=== PATIENT | female | born 1995 | race Caucasian/White ===

== ENCOUNTER 2016-05-22 22:36 | Emergency (ER) | payer BC, OTHER ==
[2016-05-22] MEDS ORDERED: Sodium Chloride 0.9% 1000 ML 1,000 ML IV STA (23:03)
[2016-05-22] MEDS ORDERED: Zofran 4 MG/2 ML VIAL IV ONE (23:03)
[2016-05-22] MEDS ORDERED: PROTONIX 40 MG IV IV ONE ×2 (23:06→23:09)
[2016-05-22] MEDS ORDERED: Zofran 4 MG/2 ML VIAL ONE (23:08)
[2016-05-22] MEDS ORDERED: Sodium Chloride 0.9% 1000 ML 1,000 ML ONE (23:09)
--- NOTE | 2016-05-22 23:13 | ERPHSYRPT ---
- History of Present Illness Time Seen by Provider: 05/22/16 22:55 Historian: patient Exam Limitations: clinical condition Patient Subjective Stated Complaint: PT REPORTS VOMITING BEGINNING TODAY, APPROXIMATELY 10 EPISODES. PT STATES SHE CANNOT KEEP ANYTHING DOWN. PT REPORTS RIGHT SIDED ABDOMINAL THAT IS NON RADIATING. Triage Nursing Assessment: PT IS AOX3, SKIN IS PWD, PT IS AMBULATORY TO COT WITH NO DIFFICULTIES, RESPS ARE EASY AND NON LABORED. Physician History: PATIENT WITH LONGSTANDING HISTORY OF FREQUENT EPISODES OF EMESIS AND UPPER ABDOMINAL PAINS OVER THE PAST YEAR. EVALUATED IN PAST YEAR WITH NORMAL GALL BLADDER ULTRASOUND AND ABDOMINAL PELVIC CT SCAN. NOW COMPLAINS OF FREQUENT EPISODES OF EMESIS TO X 10 EPISODES. NO IMPROVEMENT AFTER CLEAR LIQUID DIET. Timing/Duration: today Activities at Onset: none Quality: other Abdominal Pain Onset Location: other (NONE) Pain Radiation: no radiation Severity of Pain-Max: none Severity of Pain-Current: none Modifying Factors: Improves With: vomiting (X 10 EPISODES) Associated Symptoms: vomiting Previous symptoms: same symptoms as today Allergies/Adverse Reactions: No Known Drug Allergies Allergy (Verified 05/22/16 22:50) Hx Tetanus, Diphtheria Vaccination/Date Given: (UNK) Hx Influenza Vaccination/Date Given: Yes Hx Pneumococcal Vaccination/Date Given: No Immunizations Up to Date: Yes - Review of Systems Constitutional: No Symptoms, No Fever, No Chills Eyes: No Symptoms Ears, Nose, & Throat: No Symptoms Respiratory: No Symptoms, No Cough, No Dyspnea Cardiac: No Symptoms, No Chest Pain, No Edema, No Syncope Abdominal/Gastrointestinal: Nausea, Vomiting, No Abdominal Pain, No Diarrhea Genitourinary Symptoms: No Symptoms, No Dysuria Musculoskeletal: No Symptoms, No Back Pain, No Neck Pain Skin: No Symptoms, No Rash Neurological: No Dizziness, No Focal Weakness, No Sensory Changes Psychological: No Symptoms Endocrine: No Symptoms All Other Systems: Reviewed and Negative - Past Medical History Pertinent Past Medical History: Yes Neurological History: No Pertinent History ENT History: No Pertinent History Cardiac History: No Pertinent History Respiratory History: No Pertinent History Endocrine Medical History: No Pertinent History Musculoskeletal History: No Pertinent History GI Medical History: No Pertinent History History: No Pertinent History Psycho-Social History: Depression Female Reproductive Disorders: No Pertinent History - Past Surgical History Past Surgical History: No Neuro Surgical History: No Pertinent History Cardiac: No Pertinent History Respiratory: No Pertinent History Gastrointestinal: No Pertinent History Genitourinary: No Pertinent History Musculoskeletal: No Pertinent History Female Surgical History: No Pertinent History - Social History Smoking Status: Never smoker Exposure to second hand smoke: No Drug Use: none Patient Lives Alone: No - Female History Hx Last Menstrual Period: 05/20/16 Hx Now: No - Nursing Vital Signs Nursing Vital Signs: Initial Vital Signs Temperature 97.9 F Temperature Source Oral Pulse Rate 81 Respiratory Rate 12 Blood Pressure [Right Arm] 91/50 Pain Intensity 0 - Physical Exam General Appearance: no apparent distress, alert Eye Exam: PERRL/EOMI, eyes nml inspection Ears, Nose, Throat Exam: normal ENT inspection, pharynx normal, moist mucous membranes Neck Exam: normal inspection, non-tender, supple, full range of motion Respiratory Exam: normal breath sounds, lungs clear, No respiratory distress Cardiovascular Exam: regular rate/rhythm, normal heart sounds Gastrointestinal/Abdomen Exam: soft, normal bowel sounds, No tenderness ( NONTENDER, ), No mass Back Exam: normal inspection, normal range of motion, No CVA tenderness, No vertebral tenderness Extremity Exam: normal inspection, normal range of motion, pelvis stable Neurologic Exam: alert, oriented x 3, cooperative, normal mood/affect, nml cerebellar function, sensation nml, No motor deficits Skin Exam: normal color, warm, dry SpO2 Interpretation: normal Ordered Tests: Active Orders 24 hr Category Date Time Status IV Insertion STAT Care 05/22/16 23:03 Active Orthostatic Vital Signs STAT Care 05/22/16 23:03 Active PO Fluid Challenge STAT Care 05/23/16 01:31 Active AMYLASE Stat Lab 05/22/16 23:00 Completed CBC W DIFF Stat Lab 05/22/16 23:00 Completed CMP Stat Lab 05/22/16 23:00 Completed HCG,QUALITATIVE URINE Stat Lab 05/23/16 00:05 Completed LIPASE Stat Lab 05/22/16 23:00 Completed Manual Differential NC Stat Lab 05/22/16 23:00 Completed UA Stat Lab 05/22/16 23:30 Completed Medication Summary Discontinued Medications Generic Name Dose Route Start Last Admin Trade Name Freq PRN Reason Stop Dose Admin Sodium Chloride 1,000 mls @ 999 mls/hr 05/22/16 23:03 05/22/16 23:18 Sodium Chloride 0.9% 1000 Ml IV 05/23/16 00:03 999 mls/hr .Q1H1M STA Administration Sodium Chloride Confirm 05/22/16 23:09 Sodium Chloride 0.9% 1000 Ml Administered 05/22/16 23:10 Dose 1,000 mls @ ud .ROUTE .STK-MED ONE Sodium Chloride 1,000 mls @ 999 mls/hr 05/23/16 00:11 05/23/16 00:18 Sodium Chloride 0.9% 1000 Ml IV 05/23/16 01:11 999 mls/hr .Q1H1M STA Administration Sodium Chloride Confirm 05/23/16 00:16 Sodium Chloride 0.9% 1000 Ml Administered 05/23/16 00:17 Dose 1,000 mls @ ud .ROUTE .STK-MED ONE Ondansetron HCl 4 mg 05/22/16 23:03 05/22/16 23:16 Zofran 4 Mg/2 Ml Vial IV 05/22/16 23:04 4 mg STAT ONE Administration Ondansetron HCl Confirm 05/22/16 23:08 Zofran 4 Mg/2 Ml Vial Administered 05/22/16 23:09 Dose 4 mg .ROUTE .STK-MED ONE Pantoprazole Sodium 40 mg 05/22/16 23:06 05/22/16 23:16 Protonix 40 Mg Iv IV 05/22/16 23:07 40 mg STAT ONE Administration Pantoprazole Sodium Confirm 05/22/16 23:09 Protonix 40 Mg Iv Administered 05/22/16 23:10 Dose 40 mg IV .STK-MED ONE Promethazine HCl 25 mg 05/23/16 00:11 05/23/16 00:18 Phenergan 25 Mg Inj IM 05/23/16 00:12 25 mg STAT ONE Administration Promethazine HCl Confirm 05/23/16 00:15 Phenergan 25 Mg Inj Administered 05/23/16 00:16 Dose 25 mg .ROUTE .STK-MED ONE Lab/Rad Data: Laboratory Result Diagrams 05/22/16 23:00 05/22/16 23:00 Laboratory Results 05/23/16 05/22/16 05/22/16 Range/Units 00:05 23:30 23:00 WBC (4.0-10.5) K/mm3 RBC (4.1-5.4) M/mm3 Hgb (12.0-16.0) gm/dl Hct (35-47) % MCV (78-100) fl MCH (26-32) pg MCHC (32-36) g/dl RDW (11.5-14.0) % Plt Count (150-450) K/mm3 MPV (6-9.5) fl Segmented Neutrophils (36.0-66.0) % Lymphocytes (Manual) (24-44) % Monocytes (Manual) (0.0-12.0) % Differential Comment Platelet Estimate (NORMAL) Sodium 140 (136-145) mEq/L Potassium 3.5 (3.5-5.1) mEq/L Chloride 104 (98-107) mEq/L Carbon Dioxide 26.0 (21-32) mEq/L Anion Gap 13.1 (5-15) MEQ/L BUN 13 (9-20) mg/dL Creatinine 0.85 (0.55-1.30) mg/dl Estimated GFR > 60 ML/MIN Glucose 81 (70-110) MG/DL Calcium 9.0 (8.5-10.1) mg/dL Total Bilirubin 0.6 (0.2-1.0) mg/dL AST 15 (15-37) U/L ALT 16 (12-78) U/L Alkaline Phosphatase 80 (46-116) U/L Serum Total Protein 7.7 (6.4-8.2) gm/dL Albumin 3.7 (3.4-5.0) g/dL Amylase 75 (25-115) U/L Lipase 182 (73-393) U/L Ur Collection Type CLEAN CATCH Urine Color YELLOW (YELLOW) Urine Appearance CLEAR (CLEAR) Urine pH 7.0 (5-6) Ur Specific [place] 1.020 (1.005-1.025) Urine Protein NEGATIVE (Negative) Urine Glucose (UA) NEGATIVE (NEGATIVE) mg/dL Urine Ketones TRACE (NEGATIVE) Urine Nitrite NEGATIVE (NEGATIVE) Urine Bilirubin NEGATIVE (NEGATIVE) Urine Urobilinogen 0.2 (0-1) mg/dL Urine WBC (Auto) NEGATIVE (NEGATIVE) Urine RBC (Auto) NEGATIVE (0-5) Yves/ul Urine HCG, Qual NEGATIVE (Negative) Specimen Received 05/22/16:2330 05/22/16 Range/Units 23:00 WBC 7.5 (4.0-10.5) K/mm3 RBC 4.37 (4.1-5.4) M/mm3 Hgb 13.1 (12.0-16.0) gm/dl Hct 38.4 (35-47) % MCV 87.9 (78-100) fl MCH 30.0 (26-32) pg MCHC 34.1 (32-36) g/dl RDW 12.2 (11.5-14.0) % Plt Count 234 (150-450) K/mm3 MPV 11.9 H (6-9.5) fl Segmented Neutrophils 38 (36.0-66.0) % Lymphocytes (Manual) 53 H (24-44) % Monocytes (Manual) 9 (0.0-12.0) % Differential Comment NORMAL Platelet Estimate NORMAL (NORMAL) Sodium (136-145) mEq/L Potassium (3.5-5.1) mEq/L Chloride (98-107) mEq/L Carbon Dioxide (21-32) mEq/L Anion Gap (5-15) MEQ/L BUN (9-20) mg/dL Creatinine (0.55-1.30) mg/dl Estimated GFR ML/MIN Glucose (70-110) MG/DL Calcium (8.5-10.1) mg/dL Total Bilirubin (0.2-1.0) mg/dL AST (15-37) U/L ALT (12-78) U/L Alkaline Phosphatase (46-116) U/L Serum Total Protein (6.4-8.2) gm/dL Albumin (3.4-5.0) g/dL Amylase (25-115) U/L Lipase (73-393) U/L Ur Collection Type Urine Color (YELLOW) Urine Appearance (CLEAR) Urine pH (5-6) Ur Specific [place] (1.005-1.025) Urine Protein (Negative) Urine Glucose (UA) (NEGATIVE) mg/dL Urine Ketones (NEGATIVE) Urine Nitrite (NEGATIVE) Urine Bilirubin (NEGATIVE) Urine Urobilinogen (0-1) mg/dL Urine WBC (Auto) (NEGATIVE) Urine RBC (Auto) (0-5) Yves/ul Urine HCG, Qual (Negative) Specimen Received - Progress Progress: improved Progress Note: 05/22/16 23:11 PATIENT GIVEN IV NORMAL SALINE 1 LITER/HOUR X 2, ZOFRAN 4MG, PROTONIX 40MG IV, PHENERGAN 25MG IM FOR PERSISTENT NAUSEA 05/23/16 01:35 Counseled pt/family regarding: lab results, diagnosis, need for follow-up, rad results - Departure Time of Disposition: 01:45 Departure Disposition: Home Clinical Impression: ACUTE EMESIS, DEHYDRATION Condition: Stable Critical Care Time: No Referrals: YULIET BINGHAM [Primary Care Provider] - Additional Instructions: CONTINUE CLEAR LIQUID DIET FOR 24 HOUR THEN ADVANCE DIET TO FULL LIQIUDS, SOUPS , CHEESES, AND CRACKERS, THEN REGULAR DIET. ZOFRAN 4MG EVERY 4 HOURS FOR NAUSEA NEEDED. PHENERGAN SUPPOSITORY 25MG PER RECTUM EVERY 4 HOURS FOR NAUSEA. CONSULT YOUR HEALTH CARE PROVIDER FOR REFERRAL TO DR BUSBY FOR UPPER ENDOSCOPY. PREVACID 30MG DAILY FOR 1 MONTH. Prescriptions: Ondansetron [Zofran Odt] 4 mg PO Q4HPRN PRN #8 tab.rapdis PRN Reason: Nausea Promethazine HCl 25 mg Supp [Phenergan 25 mg Supp] 25 mg RC Q4HPRN PRN # 10 supp.rect PRN Reason: Nausea Lansoprazole [Prevacid] 30 mg PO DAILY #30 capsule.
[2016-05-22 23:23] LABS: Mean Cell Volume 87.9 fl (78-100); Mean Platelet Volume 11.9 fl (6-9.5); Platelet Count 234 K/mm3 (150-450); Red Blood Count 4.37 M/mm3 (4.1-5.4); Red Cell Distribution Width 12.2 % (11.5-14.0); White Blood Count 7.5 K/mm3 (4.0-10.5)
[2016-05-22 23:43] LABS: ALBUMIN 3.7 g/dL (3.4-5.0); ALKALINE PHOSPHATASE 80 U/L (46-116); ANION GAP 13.1 MEQ/L (5-15); BILIRUBIN,TOTAL 0.6 mg/dL (0.2-1.0); BLOOD UREA NITROGEN 13 mg/dL (9-20); CHLORIDE 104 mEq/L (98-107); Glucose 81 MG/DL (70-110); LIPASE 182 U/L (73-393); Potassium 3.5 mEq/L (3.5-5.1); SGOT/AST 15 U/L (15-37); SGPT/ALT 16 U/L (12-78); SODIUM 140 mEq/L (136-145); Total Protein 7.7 gm/dL (6.4-8.2)
[2016-05-22 23:47] LABS: COMPLETE URINE MICROSCOPIC? NO; Collection Type CLEAN CATCH
[2016-05-23] MEDS ORDERED: Sodium Chloride 0.9% 1000 ML 1,000 ML IV STA (00:11)
[2016-05-23] MEDS ORDERED: Phenergan 25 MG INJ IM ONE (00:11)
[2016-05-23] MEDS ORDERED: Phenergan 25 MG INJ ONE (00:15)
[2016-05-23] MEDS ORDERED: Sodium Chloride 0.9% 1000 ML 1,000 ML ONE (00:16)
[2016-05-23 00:49] LABS: Platelet Estimate NORMAL (NORMAL); Total Cells Counted 100
[2016-05-23 01:26] VITALS: BP 91/50; PULSE 81; O2SAT 99
== END 2016-05-23 01:51 | disposition home or self-care (01) ==
LOC: ED 22:36
DX: R11.10 Vomiting, unspecified (principal); E86.0 Dehydration; R10.9 Unspecified abdominal pain
CPT/HCPCS: 36000; 36415; 80053; 81002; 82150; 83690; 84703; 85025; 96360; 96361; 96372; 96374; 96375; 99283; 99284; J2405; J2550

== ENCOUNTER 2017-01-08 13:49 | Emergency (ER) | payer OTHER ==
--- NOTE | 2017-01-08 14:34 | ERPHSYRPT ---
- History of Present Illness Time Seen by Provider: 01/08/17 13:56 Source: patient Exam Limitations: no limitations Patient Subjective Stated Complaint: PT REPORTS HAVING WISDOM TEETH TAKEN OUT A FEW WEEKS AGO-STATES SHE CAN'T OPEN HER MOUTH-REPORTS SEVERE PAIN TO LEFT SIDE WHEN SHE TRIES-DENIES FEVER-DENIES DIFFICUTLY WITH SWALLOWING-STATES THAT HER DENTIST HAS WANTED HER TO HAVE A CT SCAN FOR A FEW DAYS Triage Nursing Assessment: PT PINK WARM ET [id number] EASY ET NONLABORED-NO DROOLING OR COUGHING NOTED-NO DIFFICUTLY WITH SPEECH NOTED-STATES THAT IT ONLY HURTS WHEN SHE ATTEMPTS TO OPEN HER MOUTH Physician History: patient here for evaluation of inability to open mouth several days post op wisdom teeth extraction - all four; no pain at rest; no difficulty swallowing or breathing; no fever; some pain with mouth opening on left mid jaw and can only partially open;no other trauma; no history; no other complaints Timing/Duration: day(s) (4), gradual onset Severity: moderate Modifying Factors: Improves With: nothing Associated Symptoms: denies symptoms Allergies/Adverse Reactions: No Known Drug Allergies Allergy (Verified 01/08/17 13:56) Home Medications: Hydrocodone Bit/Acetaminophen [[place] 5/325Mg] 1 each PO UD 01/08/17 [History] Hx Tetanus, Diphtheria Vaccination/Date Given: No Hx Influenza Vaccination/Date Given: Yes (2016) Hx Pneumococcal Vaccination/Date Given: No Immunizations Up to Date: Yes - Review of Systems Constitutional: No Symptoms Eyes: No Symptoms Ears, Nose, & Throat: Mouth Pain (left lower jaw when tries to open), No Ear Pain, No Tinnitus, No Nose Pain, No Sinus Drainage, No Epistaxis, No Throat Pain , No Throat Swelling, No Hoarse, No Painful Swallowing, No Snoring, No Stridor Respiratory: No Cough, No Dyspnea, No Wheezing Cardiac: No Chest Pain, No Palpitations, No Syncope Abdominal/Gastrointestinal: No Abdominal Pain, No Nausea, No Vomiting, No Diarrhea Genitourinary Symptoms: No Symptoms Musculoskeletal: No Symptoms Skin: No Symptoms Neurological: No Symptoms Psychological: No Symptoms Endocrine: No Symptoms Hematologic/Lymphatic: No Symptoms Immunological/Allergic: No Symptoms - Past Medical History Pertinent Past Medical History: Yes Neurological History: No Pertinent History ENT History: No Pertinent History Cardiac History: No Pertinent History Respiratory History: No Pertinent History Endocrine Medical History: No Pertinent History Musculoskeletal History: No Pertinent History GI Medical History: No Pertinent History History: No Pertinent History Psycho-Social History: Depression Female Reproductive Disorders: No Pertinent History - Past Surgical History Past Surgical History: No Neuro Surgical History: No Pertinent History Cardiac: No Pertinent History Respiratory: No Pertinent History Gastrointestinal: No Pertinent History Genitourinary: No Pertinent History Musculoskeletal: No Pertinent History Female Surgical History: No Pertinent History - Social History Smoking Status: Never smoker Exposure to second hand smoke: No Alcohol Use: None Drug Use: none Patient Lives Alone: No Significant Family History: no pertinent family hx - Female History Hx Last Menstrual Period: 2 DAYS AGO Hx Now: No - Nursing Vital Signs Nursing Vital Signs: Initial Vital Signs Temperature 97.2 F 01/08/17 13:53 Pulse Rate 73 01/08/17 13:53 Respiratory Rate 20 01/08/17 13:53 Blood Pressure 124/56 01/08/17 13:53 O2 Sat by Pulse Oximetry 96 01/08/17 13:53 Pain Scale Pain Intensity 0 - Physical Exam General Appearance: mild distress, alert Eye Exam: PERRL/EOMI, eyes nml inspection Ears, Nose, Throat Exam: normal ENT inspection, TMs normal, pharynx normal, moist mucous membranes, other (trismus with pain onleft; also jaw shifts form left to right when attempts to open; normal voice) Neck Exam: normal inspection, non-tender, supple, full range of motion, No meningismus, No JVD, No lymphadenopathy Respiratory Exam: normal breath sounds, lungs clear, airway intact, No chest tenderness, No respiratory distress Cardiovascular Exam: regular rate/rhythm, normal heart sounds, normal peripheral pulses, capillary refill <2 sec, No murmur Gastrointestinal/Abdomen Exam: soft, normal bowel sounds, No guarding, No rebound, No organomegaly Pelvic Exam: deferred Rectal Exam: deferred Back Exam: normal inspection, normal range of motion, No CVA tenderness Extremity Exam: normal inspection, normal range of motion, No pedal edema Neurologic Exam: alert, oriented x 3, cooperative, housecleaner II-XII nml as tested, normal mood/affect, nml cerebellar function, nml station & gait Skin Exam: normal color, warm, dry, No rash Lymphatic Exam: No adenopathy SpO2 Interpretation: normal SpO2: 96 Oxygen Delivery: Room Air - Course Nursing assessment & vital signs reviewed: Yes - CT Exams Maxillofacial Bones CT Interpretation: Negative, DJD (mild left TMJ; some sinus fluid) Ordered Tests: Active Orders 24 hr Category Date Time Status Cold Application STAT Care 01/08/17 14:27 Active FACIAL BONES WO CONTRAST [CT] Stat Exams 01/08/17 15:11 Completed MANDIBLE (MINIMUM 4 VIEWS) Routine Exams 01/08/17 14:10 Completed - Progress Progress: re-examined (no change; no TMJ tenderness or swelling) Progress Note: 01/08/17 14:35 patient stated her DDS had requested her to get XR to evaluate her problem; discussed findings with Radiologist to determine best films to get; will recheck after 01/08/17 15:12 rechecked post xr- results negative; discussed with Oral Surgeon, HANSEL Mendoza and concerned about infection. Will CT for infection and recheck 01/08/17 16:[address] findings [address] Dr Nora Mendoza, Oral Surgeon and he will see her in his clinic in [facility] for follow up; findings and treatment plan shared with patient ; instructions given Discussed with Dr.: Other (DR Nora Mendoza, Oral Surgeon consulted) Counseled pt/family regarding: diagnosis, need for follow-up, rad results - Departure Time of Disposition: 16:06 Departure Disposition: Home Clinical Impression: Trismus Condition: Stable Critical Care Time: No Referrals: YULIET BINGHAM [Primary Care Provider] - Instructions: Dental Pain Additional Instructions: soft diet; continue home meds; ice; see Dr Sergio Mendoza in his clinic in the am Follow-up with family doctor as directed. Call for appointment. Return if any problems. If you smoke please stop. Call or follow up with your family doctor for assistance if you need it to stop. Please wear your seatbelt when driving. Have a nice day. Thank you for allowing us to participate in your care today. :o) Dr Tate Rubin
--- NOTE | 2017-01-08 15:11 | XRAY ---
Indication: Difficulty opening jaw following dental procedure. Isolated left and right TMJ views obtained with the mouth open and closed. With the mouth closed, the TMJs are bilaterally symmetric with the mandible condyles seated in the mandibular fossa. With the mouth minimally opened, both condyles slightly move anteriorly in the mandibular fossa as expected. No other bony, articular, or soft tissue abnormalities. Impression: Though the patient could not fully open her mouth, there is normal expected TMJ motion bilaterally.
--- NOTE | 2017-01-08 15:59 | XRAY ---
Indication: Left jaw pain. Status post bilateral wisdom teeth extraction. Multiple contiguous axial images obtained through the facial bones without contrast. Comparison: None There are normal expected post surgical changes from recent extraction of the posterior upper and lower molar teeth bilaterally. No suspicious fluid collection or periodontal abscess. Osseous structures intact. No suspicious bone lesions or osseous destructive process. Mild degenerative changes of the left TMJ. Normal right TMJ. Mild mucosal thickening/fluid level layering in the posterior left maxillary sinus and minimal right ethmoid mucosal thickening. Remaining paranasal sinuses and mastoid air cells are clear. Visualized orbits and base of the brain unremarkable. Impression: 1. Normal postsurgical changes related to bilateral upper/lower molar teeth extraction. No complications/periodontal abscess. 2. Incidental paranasal sinus disease and mild degenerative changes of the left TMJ. CT DI 59.47
[2017-01-08 16:15] VITALS: BP 124/60; PULSE 76; O2SAT 86
== END 2017-01-08 16:14 | disposition home or self-care (01) ==
LOC: ED 13:49
DX: R25.2 Cramp and spasm (principal)
CPT/HCPCS: 70110; 70486; 99283; 99284

== ENCOUNTER 2020-11-15 04:18 | Emergency (ER) | payer OTHER ==
[2020-11-15] MEDS ORDERED: TORAdol 30 mg Injection IV ONE (04:37)
[2020-11-15] MEDS ORDERED: Zofran 4 MG/2 ML VIAL IV ONE ×2 (04:37→05:43)
[2020-11-15] MEDS ORDERED: Zofran 4 MG/2 ML VIAL ONE ×2 (04:40→05:54)
[2020-11-15] MEDS ORDERED: TORAdol 30 mg Injection ONE (04:40)
[2020-11-15] MEDS ORDERED: Sodium Chloride 0.9% 1000 ML 1,000 ML IV STA (04:43)
[2020-11-15] MEDS ORDERED: Sodium Chloride 0.9% 1000 ML 1,000 ML ONE (04:44)
--- NOTE | 2020-11-15 04:51 | ERPHSYRPT ---
- History of Present Illness Historian: patient Exam Limitations: no limitations Patient Subjective Stated Complaint: pt states, "I had this pain on Friday in my back and then it left Sun and Mon, but it woke me up at 2am this morning but is much worse and coming around to my stomach". Triage Nursing Assessment: pt c/o flank pain, coming around to abd onto rt lower quad. Back pain started Friday and went away but returned this morning at 0200. Pts abd soft with active bs x4 quad, tender on palpation to RLQ. Pt has burning and pain with urination, but unable to void at this time. Pt has nausea and vomiting x1 at home prior to coming in. Physician History: 25 yo wf w R sharp, flank pain w radiation to RLQ since 2:00AM. She has had some dysuria/urgency but denies frequency/hematuria/fever//diarrhea/melena/hematochezia. Pt had similar pain for 20 minutes on 11/11/20 which resolved spontaneously. Nothing makes the pain better or worse. Timing/Duration: other (2:00AM) Quality: sharpness, stabbing Abdominal Pain Onset Location: flank (R) Severity of Pain-Max: severe Severity of Pain-Current: severe Modifying Factors: Improves With: nothing Associated Symptoms: denies symptoms, back, nausea, vomiting Previous symptoms: same symptoms as today Allergies/Adverse Reactions: No Known Drug Allergies Allergy (Verified 11/15/20 04:38) Home Medications: Phentermine HCl 37.5 mg PO DAILY 11/15/20 [History] Hx Tetanus, Diphtheria Vaccination/Date Given: Yes Hx Influenza Vaccination/Date Given: No Hx Pneumococcal Vaccination/Date Given: No Immunizations Up to Date: Yes Travel Risk - International Travel Have you traveled outside of the country in past 3 weeks: No - Coronavirus Screening Are you exhibiting any of the following symptoms?: No Close contact with a COVID-19 positive Pt in past 14-21 Days: No - Vaccine Status Have you recieved a Covid-19 vaccination: No - Review of Systems Constitutional: No Symptoms Eyes: No Symptoms Ears, Nose, & Throat: No Symptoms Respiratory: No Symptoms Cardiac: No Symptoms Abdominal/Gastrointestinal: No Symptoms, Abdominal Pain, Nausea, Vomiting Genitourinary Symptoms: Dysuria, Urgency, No Hematuria, No , No Vaginal Bleeding Musculoskeletal: No Symptoms Skin: No Symptoms Neurological: No Symptoms Psychological: No Symptoms Endocrine: No Symptoms Hematologic/Lymphatic: No Symptoms Immunological/Allergic: No Symptoms - Past Medical History Pertinent Past Medical History: Yes Neurological History: No Pertinent History ENT History: No Pertinent History Cardiac History: No Pertinent History Respiratory History: No Pertinent History Endocrine Medical History: No Pertinent History Musculoskeletal History: No Pertinent History GI Medical History: No Pertinent History History: No Pertinent History Psycho-Social History: Depression Female Reproductive Disorders: No Pertinent History - Past Surgical History Past Surgical History: No Neuro Surgical History: No Pertinent History Cardiac: No Pertinent History Respiratory: No Pertinent History Gastrointestinal: No Pertinent History Genitourinary: No Pertinent History Musculoskeletal: No Pertinent History Female Surgical History: No Pertinent History - Social History Smoking Status: Never smoker Exposure to second hand smoke: No Alcohol Use: None Drug Use: none Patient Lives Alone: No Significant Family History: no pertinent family hx - Female History Hx Last Menstrual Period: 11/13/20 Hx Now: No - Nursing Vital Signs Nursing Vital Signs: Initial Vital Signs Temperature 97.6 F 11/15/20 04:25 Pulse Rate 84 11/15/20 04:25 Respiratory Rate 16 11/15/20 04:25 Blood Pressure 140/93 11/15/20 04:25 O2 Sat by Pulse Oximetry 100 11/15/20 04:25 Pain Scale Pain Intensity 7 Hypertensive - Physical Exam General Appearance: no apparent distress (In pain) Eye Exam: PERRL/EOMI, eyes nml inspection Ears, Nose, Throat Exam: normal ENT inspection, TMs normal, pharynx normal, moist mucous membranes Neck Exam: normal inspection, non-tender, supple, full range of motion, No meningismus, No mass, No Brudzinski, No Kernig's, No carotid bruit Respiratory Exam: normal breath sounds, lungs clear, airway intact, No chest tenderness, No respiratory distress Cardiovascular Exam: regular rate/rhythm, normal heart sounds, normal peripheral pulses, No murmur Gastrointestinal/Abdomen Exam: soft, normal bowel sounds, No tenderness Back Exam: normal inspection, normal range of motion, CVA tenderness (Mild R at best) Extremity Exam: normal inspection, normal range of motion Neurologic Exam: alert, oriented x 3, cooperative, plastic frame inserter II-XII nml as tested, normal mood/affect, nml cerebellar function, nml station & gait, sensation nml, No motor deficits, No sensory deficit Skin Exam: normal color, warm, dry, No rash Lymphatic Exam: No adenopathy SpO2 Interpretation: normal SpO2: 100 O2 Delivery: Room Air - CT Exams Abdomen/Pelvis CT Interpretation: Tele-radiologist Report (3mm R distal ureteral stone) Ordered Tests: Active Orders 24 hr Category Date Time Status ABDOMEN AND PELVIS W/0 CONTRAS [CT] Stat Exams 11/15/20 05:29 Taken CBC W DIFF Stat Lab 11/15/20 04:58 Completed CMP Stat Lab 11/15/20 04:58 Completed HCG QUALITATIVE,SERUM Stat Lab 11/15/20 04:58 Completed UA W/RFX UR CULTURE Stat Lab 11/15/20 05:45 Completed Urine Triage Profile Stat Lab 11/15/20 05:45 Completed Medication Summary Discontinued Medications Generic Name Dose Route Start Last Admin Trade Name Freq PRN Reason Stop Dose Admin Fentanyl Citrate 100 mcg 11/15/20 05:43 11/15/20 05:56 Sublimaze 100 Mcg/2 Ml IV 11/15/20 05:44 100 mcg STAT ONE Administration Fentanyl Citrate Confirm 11/15/20 05:54 Sublimaze 100 Mcg/2 Ml Administered 11/15/20 05:55 Dose 100 mcg .ROUTE .STK-MED ONE Hydromorphone HCl 1 mg 11/15/20 06:56 11/15/20 07:01 Hydromorphone 1 Mg/Ml Injection IV 11/15/20 06:57 1 mg STAT ONE Administration Hydromorphone HCl Confirm 11/15/20 06:58 Hydromorphone 1 Mg/Ml Injection Administered 11/15/20 06:59 Dose 1 mg .ROUTE .STK-MED ONE Sodium Chloride 1,000 mls @ 999 mls/hr 11/15/20 04:43 11/15/20 04:45 Sodium Chloride 0.9% 1000 Ml IV 11/15/20 05:43 999 mls/hr .Q1H1M STA Administration Sodium Chloride Confirm 11/15/20 04:44 Sodium Chloride 0.9% 1000 Ml Administered 11/15/20 04:45 Dose 1,000 mls @ ud .ROUTE .STK-MED ONE Ketorolac Tromethamine 30 mg 11/15/20 04:37 11/15/20 04:42 Toradol 30 Mg Injection IV 11/15/20 04:38 30 mg STAT ONE Administration Ketorolac Tromethamine Confirm 11/15/20 04:40 Toradol 30 Mg Injection Administered 11/15/20 04:41 Dose 30 mg .ROUTE .STK-MED ONE Ondansetron HCl 4 mg 11/15/20 04:37 11/15/20 04:42 Zofran 4 Mg/2 Ml Vial IV 11/15/20 04:38 4 mg STAT ONE Administration Ondansetron HCl Confirm 11/15/20 04:40 Zofran 4 Mg/2 Ml Vial Administered 11/15/20 04:41 Dose 4 mg .ROUTE .STK-MED ONE Ondansetron HCl 4 mg 11/15/20 05:43 11/15/20 05:57 Zofran 4 Mg/2 Ml Vial IV 11/15/20 05:44 4 mg STAT ONE Administration Ondansetron HCl Confirm 11/15/20 05:54 Zofran 4 Mg/2 Ml Vial Administered 11/15/20 05:55 Dose 4 mg .ROUTE .STK-MED ONE Lab/Rad Data: Laboratory Result Diagrams 11/15/20 04:58 11/15/20 04:58 Laboratory Results 11/15/20 11/15/20 11/15/20 Range/Units 05:45 05:45 04:58 WBC (4.0-10.5) K/mm3 RBC (4.1-5.4) M/mm3 Hgb (12.0-16.0) gm/dl Hct (35-47) % MCV (78-100) fl MCH (26-32) pg MCHC (32-36) g/dl RDW (11.5-14.0) % Plt Count (150-450) K/mm3 MPV (7.5-11.0) fl Gran % (36.0-66.0) % Eos # (Auto) (0-0.5) Absolute Lymphs (auto) (1.0-4.6) Absolute Monos (auto) (0.0-1.3) Lymphocytes % (24.0-44.0) % Monocytes % (0.0-12.0) % Eosinophils % (0.00-5.0) % Basophils % (0.0-0.4) % Absolute Granulocytes (1.4-6.9) Basophils # (0-0.4) Sodium (137-145) mmol/L Potassium (3.5-5.1) mmol/L Chloride (98-107) mmol/L Carbon Dioxide (22-30) mmol/L Anion Gap (5-15) MEQ/L BUN (7-17) mg/dL Creatinine (0.52-1.04) mg/dL Estimated GFR ML/MIN Glucose (74-106) mg/dL Calcium (8.4-10.2) mg/dL Total Bilirubin (0.2-1.3) mg/dL AST (14-36) U/L ALT (0-35) U/L Alkaline Phosphatase (38-126) U/L Serum Total Protein (6.3-8.2) g/dL Albumin (3.5-5.0) g/dL Serum , Qual NEGATIVE (Negative) Urine Color YELLOW (YELLOW) Urine Appearance SLIGHTLY CLOUDY (CLEAR) Urine pH 5.0 (5-6) Ur Specific [place] 1.018 (1.005-1.025) Urine Protein 30 (Negative) Urine Ketones SMALL (NEGATIVE) Urine Blood LARGE (0-5) Yves/ul Urine Nitrite NEGATIVE (NEGATIVE) Urine Bilirubin NEGATIVE (NEGATIVE) Urine Urobilinogen NEGATIVE (0-1) mg/dL Ur Leukocyte Esterase NEGATIVE (NEGATIVE) Urine WBC (Auto) 26-50 (0-5) /HPF Urine RBC (Auto) >101 (0-2) /HPF U Hyaline Cast (Auto) 3-5 (0-2) /LPF U Epithel Cells (Auto) FEW (FEW) /HPF Urine Bacteria (Auto) NONE (NEGATIVE) /HPF Urine Mucus (Auto) SLIGHT (NEGATIVE) /HPF Urine Culture Reflexed NO (NO) Urine Glucose NEGATIVE (NEGATIVE) mg/dL Urine Opiates Level NEGATIVE (NEGATIVE) Ur Methadone NEGATIVE (NEGATIVE) Urine Barbiturates NEGATIVE (NEGATIVE) Ur Phencyclidine (PCP) NEGATIVE (NEGATIVE) Urine Amphetamine NEGATIVE (NEGATIVE) U Benzodiazepine Level NEGATIVE (NEGATIVE) Urine Cocaine NEGATIVE (NEGATIVE) Urine Marijuana (THC) NEGATIVE (NEGATIVE) 11/15/20 11/15/20 Range/Units 04:58 04:58 WBC 9.6 (4.0-10.5) K/mm3 RBC 4.51 (4.1-5.4) M/mm3 Hgb 13.7 (12.0-16.0) gm/dl Hct 40.8 (35-47) % MCV 90.5 (78-100) fl MCH 30.4 (26-32) pg MCHC 33.6 (32-36) g/dl RDW 13.0 (11.5-14.0) % Plt Count 259 (150-450) K/mm3 MPV 11.8 H (7.5-11.0) fl Gran % 54.8 (36.0-66.0) % Eos # (Auto) 0.32 (0-0.5) Absolute Lymphs (auto) 3.00 (1.0-4.6) Absolute Monos (auto) 1.01 (0.0-1.3) Lymphocytes % 31.2 (24.0-44.0) % Monocytes % 10.5 (0.0-12.0) % Eosinophils % 3.3 (0.00-5.0) % Basophils % 0.2 (0.0-0.4) % Absolute Granulocytes 5.26 (1.4-6.9) Basophils # 0.02 (0-0.4) Sodium 138 (137-145) mmol/L Potassium 3.5 (3.5-5.1) mmol/L Chloride 102 (98-107) mmol/L Carbon Dioxide 25 (22-30) mmol/L Anion Gap 14.7 (5-15) MEQ/L BUN 10 (7-17) mg/dL Creatinine 0.88 (0.52-1.04) mg/dL Estimated GFR > 60.0 ML/MIN Glucose 115 H (74-106) mg/dL Calcium 9.6 (8.4-10.2) mg/dL Total Bilirubin 1.10 (0.2-1.3) mg/dL AST 24 (14-36) U/L ALT 12 (0-35) U/L Alkaline Phosphatase 76 (38-126) U/L Serum Total Protein 7.7 (6.3-8.2) g/dL Albumin 4.5 (3.5-5.0) g/dL Serum , Qual (Negative) Urine Color (YELLOW) Urine Appearance (CLEAR) Urine pH (5-6) Ur Specific [place] (1.005-1.025) Urine Protein (Negative) Urine Ketones (NEGATIVE) Urine Blood (0-5) Yves/ul Urine Nitrite (NEGATIVE) Urine Bilirubin (NEGATIVE) Urine Urobilinogen (0-1) mg/dL Ur Leukocyte Esterase (NEGATIVE) Urine WBC (Auto) (0-5) /HPF Urine RBC (Auto) (0-2) /HPF U Hyaline Cast (Auto) (0-2) /LPF U Epithel Cells (Auto) (FEW) /HPF Urine Bacteria (Auto) (NEGATIVE) /HPF Urine Mucus (Auto) (NEGATIVE) /HPF Urine Culture Reflexed (NO) Urine Glucose (NEGATIVE) mg/dL Urine Opiates Level (NEGATIVE) Ur Methadone (NEGATIVE) Urine Barbiturates (NEGATIVE) Ur Phencyclidine (PCP) (NEGATIVE) Urine Amphetamine (NEGATIVE) U Benzodiazepine Level (NEGATIVE) Urine Cocaine (NEGATIVE) Urine Marijuana (THC) (NEGATIVE) - Progress Progress: improved Progress Note: 11/15/20 05:09 Pain much improved w 30mg IV Toradol/4mg IV Zofran 11/15/20 06:52 100umg Iv Fentanyl/4mg IV Zofran w marked pain relief 11/15/20 06:57 1mg IV Dilaudid Counseled pt/family regarding: lab results, diagnosis, need for follow-up, ravin peck - Departure Departure Disposition: Home Clinical Impression: Ureterolithiasis, UTI (urinary tract infection) Condition: Stable Critical Care Time: No Referrals: YULIET BINGHAM [Primary Care Provider] - Instructions: Kidney Stones (DC), Urinary Tract Infection, Adult (DC) Additional Instructions: Strain all urine Pain meds as needed Fluids Rest Follow up with your family MD in 1-2 days Return to ER for increasing pain or temperature greater than 100.5 Prescriptions: Hydrocodone/Acetaminophen [Hydrocodone-Acetamin 10-325 mg] 1 each PO Q4H PRN PRN #6 tablet MDD 4 tabs PRN Reason: Pain Sulfamethoxazole/Trimethoprim [Bactrim Ds Tablet] 1 each PO BID 5 Days #10 tablet
[2020-11-15 05:02] LABS: Absolute Neutrophil Ct (ANC) 5.26 (1.4-6.9); BASOPHIL % 0.2 % (0.0-0.4); Basophil (Absolute #) 0.02 (0-0.4); Eosinophil % 3.3 % (0.00-5.0); Eosinophil (Absolute #) 0.32 (0-0.5); Hematocrit 40.8 % (35-47); Hemoglobin 13.7 gm/dl (12.0-16.0); Lymphocytes % 31.2 % (24.0-44.0); Mean Cell Volume 90.5 fl (78-100); Mean Corpuscular Hemoglobin 30.4 pg (26-32); Mean Corpuscular Hgb Concent. 33.6 g/dl (32-36); Mean Platelet Volume 11.8 fl (7.5-11.0); Monocyte (Absolute #) 1.01 (0.0-1.3); Monocytes % 10.5 % (0.0-12.0); Neutrophil % 54.8 % (36.0-66.0); Platelet Count 259 K/mm3 (150-450); Red Blood Count 4.51 M/mm3 (4.1-5.4); White Blood Count 9.6 K/mm3 (4.0-10.5)
[2020-11-15 05:08] LABS: ALBUMIN 4.5 g/dL (3.5-5.0); ALKALINE PHOSPHATASE 76 U/L (38-126); ANION GAP 14.7 MEQ/L (5-15); BLOOD UREA NITROGEN 10 mg/dL (7-17); CHLORIDE 102 mmol/L (98-107); Calcium 9.6 mg/dL (8.4-10.2); Carbon Dioxide 25 mmol/L (22-30); Creatinine 1 0.88 mg/dL (0.52-1.04); EST GLOMERULAR FILTRATION RATE > 60.0 ML/MIN; Glucose 115 mg/dL (74-106); Potassium 3.5 mmol/L (3.5-5.1); SGOT/AST 24 U/L (14-36); SGPT/ALT 12 U/L (0-35); SODIUM 138 mmol/L (137-145); Total Protein 7.7 g/dL (6.3-8.2)
[2020-11-15] MEDS ORDERED: SUBLIMAZE 100 MCG/2 ML IV ONE (05:43)
[2020-11-15] MEDS ORDERED: SUBLIMAZE 100 MCG/2 ML ONE (05:54)
[2020-11-15 06:07] LABS: Appearance SLIGHTLY CLOUDY (CLEAR); Bilirubin NEGATIVE (NEGATIVE); Blood LARGE Ery/ul (0-5); Epithelial Cells FEW /HPF (FEW); Glucose NEGATIVE (NEGATIVE); Ketones SMALL (NEGATIVE); Leukocyte Esterase NEGATIVE (NEGATIVE); Mucus SLIGHT /HPF (NEGATIVE); Nitrite NEGATIVE (NEGATIVE); Protein,Urine Dip 30 (Negative); Specific Gravity 1.018 (1.005-1.025); Urobilinogen NEGATIVE mg/dL (0-1); WBC 26-50 /HPF (0-5)
[2020-11-15 06:14] LABS: Amphetamine,Urine NEGATIVE (NEGATIVE); Barbiturate,Urine NEGATIVE (NEGATIVE); Benzodiazepine,Urine NEGATIVE (NEGATIVE); Cocaine,Urine NEGATIVE (NEGATIVE); Methadone,Urine NEGATIVE (NEGATIVE); Opiate,Urine NEGATIVE (NEGATIVE); PCP,Urine NEGATIVE (NEGATIVE); THC,Urine NEGATIVE (NEGATIVE)
[2020-11-15 06:23] LABS: RBC >101 /HPF (0-2)
[2020-11-15 06:53] VITALS: O2SAT 100
[2020-11-15] MEDS ORDERED: Hydromorphone 1 mg/ml Injection IV ONE (06:56)
[2020-11-15] MEDS ORDERED: Hydromorphone 1 mg/ml Injection ONE (06:58)
[2020-11-15 07:14] VITALS: BP 123/74; PULSE 100
--- NOTE | 2020-11-16 00:04 | XRAY ---
Exam: CT of the abdomen and pelvis without IV contrast from 11/15/2020. CTDI: 8.93 mGy Comparison: CT of the abdomen and pelvis with IV contrast from 09/22/2013. Indication: 25-year-old female with right flank pain and painful urination since Friday. Technique: Non-IV contrast axial images were obtained through the abdomen and pelvis. Reconstructed coronal and sagittal images were created and reviewed. Findings: There appears to be some mild asymmetric swelling of the right kidney as compared to the left kidney. I believe there is also some mild right-sided hydronephrosis and hydroureter down to the level of an obstructing distal right ureteral stone measuring about 3 mm in diameter. This is seen just proximal to the right UVJ. See axial images #103 and #104. This appears to be causing the patient's symptoms. In addition, there appears to be a tiny punctate nonobstructing stone overlying the upper pole of the right kidney and at least 3 other tiny nonobstructing punctate stones overlying the lower pole of the right kidney. I believe the left kidney is remarkable for a couple tiny nonobstructing punctate stones within the upper pole. No hydronephrosis is seen on the left. The visualized left ureter appears unremarkable. No urinary bladder stone is seen. The lung bases appear clear. Assessment of the solid organs is limited without the use of IV contrast, but no gross abnormality of the liver, gallbladder, spleen, pancreas, or adrenal glands is seen. The abdominal aorta is of normal diameter. No abnormal retroperitoneal lymphadenopathy is seen. The bowel appears nonobstructed. The appendix appears unremarkable. Scattered stool is seen throughout the colon. The stomach is partially fluid-filled. The uterus is anteflexed. The ovaries appear unremarkable. No free fluid is seen within the pelvis. The urinary bladder is mostly empty. The skeleton reveals no acute fracture or aggressive bone lesion. Impression: 1. There is a 3 mm stone within the distal right ureter just proximal to the right ureterovesical junction which appears to be causing mild right-sided hydroureteronephrosis with some right renal swelling. 2. In addition, I believe there are at least 4 tiny nonobstructing calculi within the right kidney and a couple tiny nonobstructing calculi within the left kidney, as discussed above. 3. No other acute intra-abdominal or pelvic process is seen.
== END 2020-11-15 07:54 | disposition home or self-care (01) ==
LOC: ED 04:18
DX: N20.1 Calculus of ureter (principal); N39.0 Urinary tract infection, site not specified; R10.31 Right lower quadrant pain; M54.9 Dorsalgia, unspecified; R11.2 Nausea with vomiting, unspecified; Z79.899 Other long term (current) drug therapy
CPT/HCPCS: 36415; 74176; 80053; 80307; 81001; 81025; 85025; 96374; 96375; 99284; J1170; J1885; J2405; J3010

== ENCOUNTER 2021-04-06 18:09 | Emergency (ER) | payer OTHER ==
--- NOTE | 2021-04-06 18:42 | ERPHSYRPT ---
- History of Present Illness Time Seen by Provider: 04/06/21 18:30 Source: patient Exam Limitations: no limitations Patient Subjective Stated Complaint: pt here for cramping since last night, no spotting, is 5 weeks . 1 para 0 Triage Nursing Assessment: pt alert, walked in, resp easy, face mask in place, abd soft, Physician History: This is a 25-year-old G1, P0 white female who states her last menstrual period was March 02 so she is less than 5 weeks . She is scheduled to see an food and beverage associate next week. Last evening and today she has had some bilatera lower abdominal cramping. She has not had any vaginal bleeding. She is nauseated but there is been no vomiting. She has no chest pain. She is not short of breath and she has no cough. She called the food and beverage associate's office who told her they could not see her today but she could go to the emergency room to be evaluated. Patient did have a positive test as an outpatient. Timing/Duration: yesterday Activites at Onset: none Quality: cramping (Mild bilateral) Onset Location: suprapubic (Mild bilateral) Pain Radiation: none Severity of Pain-Max: mild Severity of Pain-Current: mild Sexual intercourse history: non-contributory Modifying Factors: Improves With: nothing. Worsens With: urinating, vomiting Associated Symptoms: abdominal pain (Mild bilateral suprapubic cramping), , No urinary frequency, No lower back pain, No vaginal discharge Allergies/Adverse Reactions: No Known Drug Allergies Allergy (Verified 04/06/21 18:17) Home Medications: No Reportable Medications [No Reported Medications] 04/06/21 [History] Hx Tetanus, Diphtheria Vaccination/Date Given: No Hx Influenza Vaccination/Date Given: No Hx Pneumococcal Vaccination/Date Given: No Travel Risk - International Travel Have you traveled outside of the country in past 3 weeks: No - Coronavirus Screening Are you exhibiting any of the following symptoms?: No Close contact with a COVID-19 positive Pt in past 14-21 Days: No - Vaccine Status Have you recieved a Covid-19 vaccination: No - Review of Systems Constitutional: No Symptoms Eyes: No Symptoms Ears, Nose, & Throat: No Symptoms Respiratory: No Symptoms Cardiac: No Symptoms Abdominal/Gastrointestinal: Abdominal Pain, Nausea (Bilateral suprapubic cramping), No Vomiting, No Diarrhea, No Constipation Genitourinary Symptoms: No Symptoms Musculoskeletal: No Symptoms Skin: No Symptoms Neurological: No Symptoms Psychological: No Symptoms Endocrine: No Symptoms Hematologic/Lymphatic: No Symptoms Immunological/Allergic: No Symptoms All Other Systems: Reviewed and Negative - Past Medical History Pertinent Past Medical History: Yes Neurological History: No Pertinent History ENT History: No Pertinent History Cardiac History: No Pertinent History Respiratory History: No Pertinent History Endocrine Medical History: No Pertinent History Musculoskeletal History: No Pertinent History GI Medical History: No Pertinent History History: No Pertinent History Psycho-Social History: Depression Female Reproductive Disorders: No Pertinent History - Past Surgical History Past Surgical History: No Neuro Surgical History: No Pertinent History Cardiac: No Pertinent History Respiratory: No Pertinent History Gastrointestinal: No Pertinent History Genitourinary: No Pertinent History Musculoskeletal: No Pertinent History Female Surgical History: No Pertinent History - Social History Smoking Status: Never smoker Exposure to second hand smoke: No Alcohol Use: None Drug Use: none Patient Lives Alone: No Significant Family History: no pertinent family hx - Female History Hx Last Menstrual Period: mar 02 Hx Now: Yes - Nursing Vital Signs Nursing Vital Signs: Initial Vital Signs Temperature 99.1 F 04/06/21 18:20 Pulse Rate 120 H 04/06/21 18:20 Respiratory Rate 18 04/06/21 18:20 Blood Pressure 135/83 04/06/21 18:20 O2 Sat by Pulse Oximetry 100 04/06/21 18:20 Pain Scale Pain Intensity 4 - Physical Exam General Appearance: no apparent distress, alert, anxiety Eye Exam: PERRL/EOMI, eyes nml inspection Ears, Nose, Throat Exam: normal ENT inspection, moist mucous membranes Neck Exam: normal inspection, non-tender, supple, full range of motion Respiratory Exam: normal breath sounds, lungs clear, airway intact, No chest tenderness, No respiratory distress Cardiovascular Exam: tachycardia Gastrointestinal/Abdomen Exam: soft, normal bowel sounds, tenderness (No tenderness elicited on abdominal palpation), No guarding, No rebound Pelvic Exam: not done Rectal Exam: not done Back Exam: normal inspection, normal range of motion, No CVA tenderness, No vertebral tenderness Extremity Exam: normal inspection, normal range of motion, pelvis stable Neurologic Exam: alert, oriented x 3, cooperative, labor supervisor II-XII nml as tested, normal mood/affect, nml cerebellar function, nml station & gait, sensation nml Skin Exam: normal color, warm, dry Lymphatic Exam: No adenopathy SpO2 Interpretation: normal SpO2: 100 O2 Delivery: Room Air - Course Nursing assessment & vital signs reviewed: Yes Ordered Tests: Active Orders 24 hr Category Date Time Status AMYLASE Stat Lab 04/06/21 19:21 Completed CBC W DIFF Stat Lab 04/06/21 19:21 Completed CMP Stat Lab 04/06/21 19:21 Completed HCG QUALITATIVE,SERUM Stat Lab 04/06/21 19:21 Completed HCG, Quantitative (Inhouse) Stat Lab 04/06/21 19:21 Completed LIPASE Stat Lab 04/06/21 19:21 Completed Lactic Acid Stat Lab 04/06/21 19:20 Completed UA W/RFX UR CULTURE Stat Lab 04/06/21 18:45 Completed Medication Summary Discontinued Medications Generic Name Dose Route Start Last Admin Trade Name Freq PRN Reason Stop Dose Admin Potassium Chloride 10 meq 04/06/21 20:12 Potassium Chloride 10 Meq Tablet PO 04/06/21 20:13 STAT ONE Lab/Rad Data: Laboratory Result Diagrams 04/06/21 19:21 04/06/21 19:21 Laboratory Results 04/06/21 04/06/21 04/06/21 Range/Units 19:21 19:21 19:21 WBC 13.0 H (4.0-10.5) K/mm3 RBC 4.43 (4.1-5.4) M/mm3 Hgb 13.4 (12.0-16.0) gm/dl Hct 40.0 (35-47) % MCV 90.3 (78-100) fl MCH 30.2 (26-32) pg MCHC 33.5 (32-36) g/dl RDW 12.6 (11.5-14.0) % Plt Count 256 (150-450) K/mm3 MPV 11.4 H (7.5-11.0) fl Gran % 67.8 H (36.0-66.0) % Eos # (Auto) 0.25 (0-0.5) Absolute Lymphs (auto) 2.84 (1.0-4.6) Absolute Monos (auto) 1.08 (0.0-1.3) Lymphocytes % 21.8 L (24.0-44.0) % Monocytes % 8.3 (0.0-12.0) % Eosinophils % 1.9 (0.00-5.0) % Basophils % 0.2 (0.0-0.4) % Absolute Granulocytes 8.81 H (1.4-6.9) Basophils # 0.03 (0-0.4) Sodium 134 L (137-145) mmol/L Potassium 3.2 L (3.5-5.1) mmol/L Chloride 102 (98-107) mmol/L Carbon Dioxide 23 (22-30) mmol/L Anion Gap 12.8 (5-15) MEQ/L BUN 11 (7-17) mg/dL Creatinine 0.63 (0.52-1.04) mg/dL Estimated GFR > 60.0 ML/MIN Glucose 124 H (74-106) mg/dL Lactic Acid (0.4-2.0) Calcium 9.1 (8.4-10.2) mg/dL Total Bilirubin 1.10 (0.2-1.3) mg/dL AST 19 (14-36) U/L ALT 15 (0-35) U/L Alkaline Phosphatase 69 (38-126) U/L Serum Total Protein 7.6 (6.3-8.2) g/dL Albumin 4.4 (3.5-5.0) g/dL Amylase 80 (30-110) U/L Lipase 155 (23-300) U/L Beta HCG, Quant 830.58 mIU/ml Serum , Qual POSITIVE (Negative) Urine Color (YELLOW) Urine Appearance (CLEAR) Urine pH (5-6) Ur Specific [place] (1.005-1.025) Urine Protein (Negative) Urine Ketones (NEGATIVE) Urine Blood (0-5) Yves/ul Urine Nitrite (NEGATIVE) Urine Bilirubin (NEGATIVE) Urine Urobilinogen (0-1) mg/dL Ur Leukocyte Esterase (NEGATIVE) Urine WBC (Auto) (0-5) /HPF Urine RBC (Auto) (0-2) /HPF U Hyaline Cast (Auto) (0-2) /LPF U Epithel Cells (Auto) (FEW) /HPF Urine Bacteria (Auto) (NEGATIVE) /HPF Urine Mucus (Auto) (NEGATIVE) /HPF Urine Culture Reflexed (NO) Urine Glucose (NEGATIVE) mg/dL ABO Group Rh Factor Antibody Screen (NEGATIVE) 04/06/21 04/06/21 04/06/21 Range/Units 19:20 18:45 18:43 WBC (4.0-10.5) K/mm3 RBC (4.1-5.4) M/mm3 Hgb (12.0-16.0) gm/dl Hct (35-47) % MCV (78-100) fl MCH (26-32) pg MCHC (32-36) g/dl RDW (11.5-14.0) % Plt Count (150-450) K/mm3 MPV (7.5-11.0) fl Gran % (36.0-66.0) % Eos # (Auto) (0-0.5) Absolute Lymphs (auto) (1.0-4.6) Absolute Monos (auto) (0.0-1.3) Lymphocytes % (24.0-44.0) % Monocytes % (0.0-12.0) % Eosinophils % (0.00-5.0) % Basophils % (0.0-0.4) % Absolute Granulocytes (1.4-6.9) Basophils # (0-0.4) Sodium (137-145) mmol/L Potassium (3.5-5.1) mmol/L Chloride (98-107) mmol/L Carbon Dioxide (22-30) mmol/L Anion Gap (5-15) MEQ/L BUN (7-17) mg/dL Creatinine (0.52-1.04) mg/dL Estimated GFR ML/MIN Glucose (74-106) mg/dL Lactic Acid 2.1 H (0.4-2.0) Calcium (8.4-10.2) mg/dL Total Bilirubin (0.2-1.3) mg/dL AST (14-36) U/L ALT (0-35) U/L Alkaline Phosphatase (38-126) U/L Serum Total Protein (6.3-8.2) g/dL Albumin (3.5-5.0) g/dL Amylase (30-110) U/L Lipase (23-300) U/L Beta HCG, Quant mIU/ml Serum , Qual (Negative) Urine Color YELLOW (YELLOW) Urine Appearance CLEAR (CLEAR) Urine pH 6.0 (5-6) Ur Specific [place] 1.013 (1.005-1.025) Urine Protein NEGATIVE (Negative) Urine Ketones TRACE (NEGATIVE) Urine Blood NEGATIVE (0-5) Yves/ul Urine Nitrite NEGATIVE (NEGATIVE) Urine Bilirubin NEGATIVE (NEGATIVE) Urine Urobilinogen 2 (0-1) mg/dL Ur Leukocyte Esterase NEGATIVE (NEGATIVE) Urine WBC (Auto) 0-2 (0-5) /HPF Urine RBC (Auto) 0-2 (0-2) /HPF U Hyaline Cast (Auto) 0-2 (0-2) /LPF U Epithel Cells (Auto) RARE (FEW) /HPF Urine Bacteria (Auto) NONE SEEN (NEGATIVE) /HPF Urine Mucus (Auto) SLIGHT (NEGATIVE) /HPF Urine Culture Reflexed NO (NO) Urine Glucose NEGATIVE (NEGATIVE) mg/dL ABO Group O Rh Factor POSITIVE Antibody Screen NEGATIVE (NEGATIVE) - Progress Progress: improved, re-examined Air Movement: good Progress Note: 04/06/21 20:14 Medical decision making: This patient does not have an acute surgical abdomen on examination. She has mild hypokalemia. She has not had any vaginal bleeding. She is less than 5 weeks based on her last menstrual period date. Patient is to increase her fluid intake. She is to consume green leafy vegetables and bananas. She was told to return to the emergency department if her symptoms worsen. Blood Culture(s) Obtained: No Antibiotics given: No Counseled pt/family regarding: lab results, diagnosis, need for follow-up - Departure Departure Disposition: Home Clinical Impression: , Hypokalemia Condition: Stable Critical Care Time: No Referrals: YULIET BINGHAM NP [Primary Care Provider] - Follow up/PCP as directed Additional Instructions: Drink plenty of fluids. Increase your oral fluid intake. Consume bananas and green leafy vegetables. Keep your appointment with your food and beverage associate next week. Return to the emergency department if symptoms recur/worsen
[2021-04-06 19:29] LABS: Absolute Neutrophil Ct (ANC) 8.81 (1.4-6.9); Basophil (Absolute #) 0.03 (0-0.4); Eosinophil % 1.9 % (0.00-5.0); Eosinophil (Absolute #) 0.25 (0-0.5); Hemoglobin 13.4 gm/dl (12.0-16.0); Lymphocyte (Absolute #) 2.84 (1.0-4.6); Lymphocytes % 21.8 % (24.0-44.0); Mean Cell Volume 90.3 fl (78-100); Mean Corpuscular Hemoglobin 30.2 pg (26-32); Mean Corpuscular Hgb Concent. 33.5 g/dl (32-36); Mean Platelet Volume 11.4 fl (7.5-11.0); Monocyte (Absolute #) 1.08 (0.0-1.3); Monocytes % 8.3 % (0.0-12.0); Neutrophil % 67.8 % (36.0-66.0); Platelet Count 256 K/mm3 (150-450); Red Blood Count 4.43 M/mm3 (4.1-5.4); Red Cell Distribution Width 12.6 % (11.5-14.0)
[2021-04-06 19:43] LABS: Appearance CLEAR (CLEAR); Bilirubin NEGATIVE (NEGATIVE); Blood NEGATIVE Ery/ul (0-5); Epithelial Cells RARE /HPF (FEW); Glucose NEGATIVE (NEGATIVE); Hyaline Casts 0-2 /LPF (0-2); Ketones TRACE (NEGATIVE); Leukocyte Esterase NEGATIVE (NEGATIVE); Mucus SLIGHT /HPF (NEGATIVE); Nitrite NEGATIVE (NEGATIVE); Protein,Urine Dip NEGATIVE (Negative); RBC 0-2 /HPF (0-2); Specific Gravity 1.013 (1.005-1.025); Urobilinogen 2 mg/dL (0-1); WBC 0-2 /HPF (0-5)
[2021-04-06 19:56] LABS: Bacteria NONE SEEN /HPF (NEGATIVE)
[2021-04-06 19:58] LABS: ALBUMIN 4.4 g/dL (3.5-5.0); ALKALINE PHOSPHATASE 69 U/L (38-126); AMYLASE 80 U/L (30-110); ANION GAP 12.8 MEQ/L (5-15); BLOOD UREA NITROGEN 11 mg/dL (7-17); CHLORIDE 102 mmol/L (98-107); Calcium 9.1 mg/dL (8.4-10.2); Carbon Dioxide 23 mmol/L (22-30); Creatinine 1 0.63 mg/dL (0.52-1.04); EST GLOMERULAR FILTRATION RATE > 60.0 ML/MIN; Glucose 124 mg/dL (74-106); HCG, Quantitative (Inhouse) 830.58 mIU/ml; LIPASE 155 U/L (23-300); Potassium 3.2 mmol/L (3.5-5.1); SGOT/AST 19 U/L (14-36); SGPT/ALT 15 U/L (0-35); SODIUM 134 mmol/L (137-145); Total Protein 7.6 g/dL (6.3-8.2)
[2021-04-06 20:09] LABS: ABO TYPING O; Antibody Screen NEGATIVE (NEGATIVE); RH TYPING POSITIVE
[2021-04-06] MEDS ORDERED: Klor Con 10 MEQ PO ONE ×2 (20:12→20:14)
[2021-04-06 20:13] VITALS: BP 115/77; PULSE 104
[2021-04-06 20:16] VITALS: O2SAT 100
== END 2021-04-06 20:29 | disposition home or self-care (01) ==
LOC: ED 18:09
DX: E87.6 Hypokalemia (principal); Z34.01 Encounter for supervision of normal first pregnancy, first trimester; Z3A.01 Less than 8 weeks gestation of pregnancy; R11.0 Nausea; R10.30 Lower abdominal pain, unspecified
CPT/HCPCS: 36415; 80053; 81001; 81025; 82150; 83605; 83690; 84702; 85025; 86850; 86900; 86901; 99283; A9270-GY

== ENCOUNTER 2021-04-09 11:01 | Emergency (ER) | payer OTHER ==
[2021-04-09] MEDS ORDERED: Sodium Chloride 0.9% 1000 ML 1,000 ML IV SCH (11:30)
[2021-04-09] MEDS ORDERED: Sodium Chloride 0.9% 1000 ML 1,000 ML ONE (11:38)
[2021-04-09 11:41] LABS: Appearance SLIGHTLY CLOUDY (CLEAR); Bacteria FEW /HPF (NEGATIVE); Bilirubin NEGATIVE (NEGATIVE); Blood NEGATIVE Ery/ul (0-5); Epithelial Cells RARE /HPF (FEW); Glucose NEGATIVE (NEGATIVE); Ketones TRACE (NEGATIVE); Leukocyte Esterase NEGATIVE (NEGATIVE); Mucus SLIGHT /HPF (NEGATIVE); Nitrite NEGATIVE (NEGATIVE); Protein,Urine Dip 30 (Negative); RBC 0-2 /HPF (0-2); Specific Gravity 1.035 (1.005-1.025); Urobilinogen NEGATIVE mg/dL (0-1); WBC 0-2 /HPF (0-5)
--- NOTE | 2021-04-09 11:44 | ERPHSYRPT ---
- History of Present Illness Time Seen by Provider: 04/09/21 11:30 Source: patient Exam Limitations: no limitations Patient Subjective Stated Complaint: -Right lower abdominal pain 10/07 Triage Nursing Assessment: Patient ambulated back to ED and transferred self to bed. Patient A+O X3. Patient's skin pink, warm and dry. Patient states she is 5 weeks and started cramping and having pain in the right lower abdomen. Patient denies bleeding. Physician History: Patient is a 25-year-old female presents to our ED as a referral from her [employer] physician to rule out ectopic . Patient is currently 5 weeks . She is experiencing pain at the area of her right ovary. Pain rated 7 out of 10. patient was in our ED last Friday. Patient had a work-up that did not include an ultrasound. Patient is here for an ultrasound. No vaginal bleeding. No trauma. No fever. Patient does state that she is experiencing urinary frequency. Possible urinary tract infection. Symptoms are mild to moderate in intensity. Palpation reproduces symptoms. Pain improved with rest. She voices no other complaints concerns at this time. Timing/Duration: day(s) (4 days) Severity: moderate Associated Symptoms: other (Urinary frequency) Allergies/Adverse Reactions: No Known Drug Allergies Allergy (Verified 04/09/21 11:13) Home Medications: No Reportable Medications [No Reported Medications] 04/06/21 [History] Hx Tetanus, Diphtheria Vaccination/Date Given: No Hx Influenza Vaccination/Date Given: No Hx Pneumococcal Vaccination/Date Given: No Immunizations Up to Date: Yes Travel Risk - International Travel Have you traveled outside of the country in past 3 weeks: No - Coronavirus Screening Are you exhibiting any of the following symptoms?: No Close contact with a COVID-19 positive Pt in past 14-21 Days: No - Vaccine Status Have you recieved a Covid-19 vaccination: No - Review of Systems Constitutional: No Symptoms, No Fever, No Chills Eyes: No Symptoms Ears, Nose, & Throat: No Symptoms Respiratory: No Symptoms, No Cough, No Dyspnea Cardiac: No Symptoms, No Chest Pain, No Edema, No Syncope Abdominal/Gastrointestinal: No Symptoms, No Abdominal Pain, No Nausea, No Vomiting, No Diarrhea Genitourinary Symptoms: No Symptoms, No Dysuria Musculoskeletal: No Symptoms, No Back Pain, No Neck Pain Skin: No Symptoms, No Rash Neurological: No Symptoms, No Dizziness, No Focal Weakness, No Sensory Changes Psychological: No Symptoms Endocrine: No Symptoms Hematologic/Lymphatic: No Symptoms Immunological/Allergic: No Symptoms All Other Systems: Reviewed and Negative - Past Medical History Pertinent Past Medical History: Yes Neurological History: No Pertinent History ENT History: No Pertinent History Cardiac History: No Pertinent History Respiratory History: No Pertinent History Endocrine Medical History: No Pertinent History Musculoskeletal History: No Pertinent History GI Medical History: No Pertinent History History: No Pertinent History Psycho-Social History: Depression Female Reproductive Disorders: No Pertinent History - Past Surgical History Past Surgical History: No Neuro Surgical History: No Pertinent History Cardiac: No Pertinent History Respiratory: No Pertinent History Gastrointestinal: No Pertinent History Genitourinary: No Pertinent History Musculoskeletal: No Pertinent History Female Surgical History: No Pertinent History - Social History Smoking Status: Never smoker Exposure to second hand smoke: No Alcohol Use: None Drug Use: none Patient Lives Alone: No Significant Family History: no pertinent family hx - Female History Hx Last Menstrual Period: March 02, 2021 Hx Now: Yes Expected Date of Delivery: 12/07/21 - Nursing Vital Signs Nursing Vital Signs: Initial Vital Signs Temperature 98.5 F 04/09/21 11:15 Pulse Rate 90 04/09/21 11:15 Respiratory Rate 18 04/09/21 11:15 Blood Pressure 124/98 04/09/21 11:15 O2 Sat by Pulse Oximetry 99 04/09/21 11:15 Pain Scale Pain Intensity 6 - Physical Exam General Appearance: no apparent distress, alert Eye Exam: PERRL/EOMI, eyes nml inspection Ears, Nose, Throat Exam: normal ENT inspection, TMs normal, pharynx normal, moist mucous membranes Neck Exam: normal inspection, non-tender, supple, full range of motion Respiratory Exam: normal breath sounds, lungs clear, airway intact, No respiratory distress Cardiovascular Exam: regular rate/rhythm, normal heart sounds, normal peripheral pulses Gastrointestinal/Abdomen Exam: soft, normal bowel sounds, No tenderness, No mass, No guarding Back Exam: normal inspection, normal range of motion, No CVA tenderness, No vertebral tenderness Extremity Exam: normal inspection, normal range of motion, pelvis stable Neurologic Exam: alert, oriented x 3, cooperative, normal mood/affect, nml cerebellar function, nml station & gait, sensation nml, No motor deficits Skin Exam: normal color, warm, dry, No rash Lymphatic Exam: No adenopathy SpO2 Interpretation: normal SpO2: 99 O2 Delivery: Room Air - Course Nursing assessment & vital signs reviewed: Yes - Radiology Ultrasound Exam OB Ultrasound: discussed w/radiologist (Per social service agency director ovaries appear normal. Magnetic Resonance Technologist's is too early to determine IUP. She states she observed a decidual reaction .) Ordered Tests: Active Orders 24 hr Category Date Time Status OB <14 WKS 1ST GESTATION [US] Stat Exams 04/09/21 11:27 Completed CBC W DIFF Stat Lab 04/09/21 13:20 Completed CMP Stat Lab 04/09/21 13:20 Completed HCG, Quantitative (Inhouse) Stat Lab 04/09/21 11:27 Completed UA W/RFX UR CULTURE Stat Lab 04/09/21 11:30 Completed Transfer Order Routine Transfer 04/09/21 Ordered Medication Summary Generic Name Dose Route Start Last Admin Trade Name Freq PRN Reason Stop Dose Admin Sodium Chloride 1,000 mls @ 100 mls/hr 04/09/21 11:30 04/09/21 11:39 Sodium Chloride 0.9% 1000 Ml IV 05/09/21 11:29 100 mls/hr .Q10H NERI Administration Lab/Rad Data: Laboratory Result Diagrams 04/09/21 13:20 04/09/21 13:20 Laboratory Results 04/09/21 04/09/21 04/09/21 Range/Units 13:20 13:20 11:30 WBC 12.8 H (4.0-10.5) K/mm3 RBC 4.26 (4.1-5.4) M/mm3 Hgb 12.9 (12.0-16.0) gm/dl Hct 38.9 (35-47) % MCV 91.3 (78-100) fl MCH 30.3 (26-32) pg MCHC 33.2 (32-36) g/dl RDW 12.7 (11.5-14.0) % Plt Count 249 (150-450) K/mm3 MPV 11.2 H (7.5-11.0) fl Gran % 72.6 H (36.0-66.0) % Eos # (Auto) 0.09 (0-0.5) Absolute Lymphs (auto) 2.38 (1.0-4.6) Absolute Monos (auto) 0.98 (0.0-1.3) Lymphocytes % 18.6 L (24.0-44.0) % Monocytes % 7.7 (0.0-12.0) % Eosinophils % 0.7 (0.00-5.0) % Basophils % 0.4 (0.0-0.4) % Absolute Granulocytes 9.31 H (1.4-6.9) Basophils # 0.05 (0-0.4) Sodium 135 L (137-145) mmol/L Potassium 3.6 (3.5-5.1) mmol/L Chloride 104 (98-107) mmol/L Carbon Dioxide 23 (22-30) mmol/L Anion Gap 12.0 (5-15) MEQ/L BUN 9 (7-17) mg/dL Creatinine 0.56 (0.52-1.04) mg/dL Estimated GFR > 60.0 ML/MIN Glucose 87 (74-106) mg/dL Calcium 8.9 (8.4-10.2) mg/dL Total Bilirubin 1.10 (0.2-1.3) mg/dL AST 19 (14-36) U/L ALT 14 (0-35) U/L Alkaline Phosphatase 73 (38-126) U/L Serum Total Protein 7.2 (6.3-8.2) g/dL Albumin 4.2 (3.5-5.0) g/dL Beta HCG, Quant mIU/ml Urine Color YELLOW (YELLOW) Urine Appearance SLIGHTLY CLOUDY (CLEAR) Urine pH 5.0 (5-6) Ur Specific [place] 1.035 (1.005-1.025) Urine Protein 30 (Negative) Urine Ketones TRACE (NEGATIVE) Urine Blood NEGATIVE (0-5) Yves/ul Urine Nitrite NEGATIVE (NEGATIVE) Urine Bilirubin NEGATIVE (NEGATIVE) Urine Urobilinogen NEGATIVE (0-1) mg/dL Ur Leukocyte Esterase NEGATIVE (NEGATIVE) Urine WBC (Auto) 0-2 (0-5) /HPF Urine RBC (Auto) 0-2 (0-2) /HPF U Epithel Cells (Auto) RARE (FEW) /HPF Urine Bacteria (Auto) FEW (NEGATIVE) /HPF Urine Mucus (Auto) SLIGHT (NEGATIVE) /HPF Urine Culture Reflexed NO (NO) Urine Glucose NEGATIVE (NEGATIVE) mg/dL 04/09/21 Range/Units 11:27 WBC (4.0-10.5) K/mm3 RBC (4.1-5.4) M/mm3 Hgb (12.0-16.0) gm/dl Hct (35-47) % MCV (78-100) fl MCH (26-32) pg MCHC (32-36) g/dl RDW (11.5-14.0) % Plt Count (150-450) K/mm3 MPV (7.5-11.0) fl Gran % (36.0-66.0) % Eos # (Auto) (0-0.5) Absolute Lymphs (auto) (1.0-4.6) Absolute Monos (auto) (0.0-1.3) Lymphocytes % (24.0-44.0) % Monocytes % (0.0-12.0) % Eosinophils % (0.00-5.0) % Basophils % (0.0-0.4) % Absolute Granulocytes (1.4-6.9) Basophils # (0-0.4) Sodium (137-145) mmol/L Potassium (3.5-5.1) mmol/L Chloride (98-107) mmol/L Carbon Dioxide (22-30) mmol/L Anion Gap (5-15) MEQ/L BUN (7-17) mg/dL Creatinine (0.52-1.04) mg/dL Estimated GFR ML/MIN Glucose (74-106) mg/dL Calcium (8.4-10.2) mg/dL Total Bilirubin (0.2-1.3) mg/dL AST (14-36) U/L ALT (0-35) U/L Alkaline Phosphatase (38-126) U/L Serum Total Protein (6.3-8.2) g/dL Albumin (3.5-5.0) g/dL Beta HCG, Quant 1048.0 mIU/ml Urine Color (YELLOW) Urine Appearance (CLEAR) Urine pH (5-6) Ur Specific [place] (1.005-1.025) Urine Protein (Negative) Urine Ketones (NEGATIVE) Urine Blood (0-5) Yves/ul Urine Nitrite (NEGATIVE) Urine Bilirubin (NEGATIVE) Urine Urobilinogen (0-1) mg/dL Ur Leukocyte Esterase (NEGATIVE) Urine WBC (Auto) (0-5) /HPF Urine RBC (Auto) (0-2) /HPF U Epithel Cells (Auto) (FEW) /HPF Urine Bacteria (Auto) (NEGATIVE) /HPF Urine Mucus (Auto) (NEGATIVE) /HPF Urine Culture Reflexed (NO) Urine Glucose (NEGATIVE) mg/dL - Progress Progress: improved Progress Note: Patient reassessed. She feels well. No active pain at this time. Patient's hCG 2 days ago was 830. Today its 1048. Case discussed with Dr. Reddy. In light of the decreased rate of rise of hCG we are concerned for the possibility of ectopic although the ultrasound was negative. Patient currently has a follow-up appointment for Sunday, April 11, 2021. Patient was given a prescription for a repeat beta hCG to be done the morning of April 11, 2021 prior to her appointment with Dr. Reddy. Patient understands plan of care. Janet russo understands she is to return to our ED if she develops worsening symptoms. She voices no other complaints or concerns at this time. Portions of this note were created with voice recognition technology. There may be grammatical, spelling, punctuation or sound alike errors 04/09/21 14:[address] Amy Will see patient in: office Counseled pt/family regarding: lab results, diagnosis, need for follow-up, rad results - Departure Departure Disposition: Home Clinical Impression: Pelvic pain Condition: Stable Critical Care Time: No Referrals: YULIET BINGHAM, [employer] [Primary Care Provider] - Follow up/PCP as directed Additional Instructions: Discharge/Care Plan JASONJOSE RAULFROYLAN AMARIS was seen on 04/09/21 in the Emergency Room. The patient was counseled regarding Diagnosis,Lab results, Imaging studies, need for follow up and when to return to the Emergency Room. Prescriptions given: Discharge Note I have spoken with the patient and/or caregivers. I have explained the patient's condition, diagnosis and treatment plan based on the information available to me at this time. I have answered the patient's and/or caregiver's questions and addressed any concerns. The patient and/or caregivers have as good understanding of the patient's diagnosis, condition and treatment plan as can be expected at this point. The vital signs have been stable. The patient's condition is stable and appropriate for discharge from the emergency department. The patient will pursue further outpatient evaluation with the primary care ysician or other designated or consulting physician as outlined in the discharge instructions. The patient and/or caregivers are agreeable to this plan of care and follow-up instructions have been explained in detail. The patient and/or caregivers have received these instruction. The patient/and or caregivers are aware that any significant change in condition or worsening of symptoms should prompt an immediate return to this or the closest emergency department or call 911.
--- NOTE | 2021-04-09 12:16 | XRAY ---
Indication: Pain. Ectopic . Two-dimensional transvaginal early OB ultrasound performed. Comparison: None Uterus anteverted without intrauterine gestational sac, pole, or heart tones. No endometrial cavity mass or fluid collection. Left and right ovaries are sonographically unremarkable. No suspicious adnexal mass or free fluid. Impression: Negative for intrauterine/ectopic .
[2021-04-09 13:06] VITALS: BP 114/73; PULSE 84
[2021-04-09 13:29] LABS: Absolute Neutrophil Ct (ANC) 9.31 (1.4-6.9); Basophil (Absolute #) 0.05 (0-0.4); Eosinophil % 0.7 % (0.00-5.0); Eosinophil (Absolute #) 0.09 (0-0.5); Hematocrit 38.9 % (35-47); Hemoglobin 12.9 gm/dl (12.0-16.0); Lymphocyte (Absolute #) 2.38 (1.0-4.6); Lymphocytes % 18.6 % (24.0-44.0); Mean Cell Volume 91.3 fl (78-100); Mean Corpuscular Hemoglobin 30.3 pg (26-32); Mean Corpuscular Hgb Concent. 33.2 g/dl (32-36); Mean Platelet Volume 11.2 fl (7.5-11.0); Monocyte (Absolute #) 0.98 (0.0-1.3); Monocytes % 7.7 % (0.0-12.0); Neutrophil % 72.6 % (36.0-66.0); Platelet Count 249 K/mm3 (150-450); Red Blood Count 4.26 M/mm3 (4.1-5.4); Red Cell Distribution Width 12.7 % (11.5-14.0); White Blood Count 12.8 K/mm3 (4.0-10.5)
[2021-04-09 13:37] LABS: ALBUMIN 4.2 g/dL (3.5-5.0); ALKALINE PHOSPHATASE 73 U/L (38-126); BLOOD UREA NITROGEN 9 mg/dL (7-17); CHLORIDE 104 mmol/L (98-107); Calcium 8.9 mg/dL (8.4-10.2); Carbon Dioxide 23 mmol/L (22-30); Creatinine 1 0.56 mg/dL (0.52-1.04); EST GLOMERULAR FILTRATION RATE > 60.0 ML/MIN; Glucose 87 mg/dL (74-106); Potassium 3.6 mmol/L (3.5-5.1); SGOT/AST 19 U/L (14-36); SGPT/ALT 14 U/L (0-35); SODIUM 135 mmol/L (137-145); Total Protein 7.2 g/dL (6.3-8.2)
[2021-04-09 14:44] VITALS: O2SAT 99
== END 2021-04-09 14:53 | disposition home or self-care (01) ==
LOC: ED 11:01
DX: Z34.91 Encounter for supervision of normal pregnancy, unspecified, first trimester (principal); R10.2 Pelvic and perineal pain; Z3A.01 Less than 8 weeks gestation of pregnancy
CPT/HCPCS: 36000; 36415; 76801; 80053; 81001; 84702; 85025; 99284

== ENCOUNTER 2021-06-21 08:51 | Emergency (ER) | payer OTHER ==
--- NOTE | 2021-06-21 08:55 | ERPHSYRPT ---
- History of Present Illness Time Seen by Provider: 06/21/21 08:54 Historian: patient Exam Limitations: no limitations Physician History: This is a 26-year-old white female who states that she has needle sensations in bilateral suprapubic regions. She does not have any vaginal bleeding. The pain is not severe. She has had no nausea vomiting or diarrhea. Patient has been followed by Dr. Reddy as an outpatient. It has been determined she is approximately 5 weeks . She has not had an OB ultrasound since she was diagnosed with . However they have followed her hCGs. She reports to me that on 06/16/2021 her quantitative hCG was 756 and on 06/18/2021 it had increased to 1800. Timing/Duration: today Activities at Onset: none Quality: other ([id number]) Abdominal Pain Onset Location: suprapubic (I lateral) Pain Radiation: no radiation Severity of Pain-Max: none Severity of Pain-Current: none Modifying Factors: Improves With: nothing Associated Symptoms: denies symptoms Previous symptoms: no prior history Allergies/Adverse Reactions: No Known Drug Allergies Allergy (Verified 04/09/21 11:13) Home Medications: No Reportable Medications [No Reported Medications] 04/06/21 [History] Hx Tetanus, Diphtheria Vaccination/Date Given: No Hx Influenza Vaccination/Date Given: No Hx Pneumococcal Vaccination/Date Given: No Travel Risk - International Travel Have you traveled outside of the country in past 3 weeks: No - Coronavirus Screening Are you exhibiting any of the following symptoms?: No Close contact with a COVID-19 positive Pt in past 14-21 Days: No - Vaccine Status Have you recieved a Covid-19 vaccination: No - Review of Systems Constitutional: No Symptoms Eyes: No Symptoms Ears, Nose, & Throat: No Symptoms Respiratory: No Symptoms Cardiac: No Symptoms Abdominal/Gastrointestinal: No Symptoms Genitourinary Symptoms: Musculoskeletal: No Symptoms Skin: No Symptoms Neurological: No Symptoms Psychological: No Symptoms Endocrine: No Symptoms Hematologic/Lymphatic: No Symptoms Immunological/Allergic: No Symptoms All Other Systems: Reviewed and Negative - Past Medical History Pertinent Past Medical History: Yes Neurological History: No Pertinent History ENT History: No Pertinent History Cardiac History: No Pertinent History Respiratory History: No Pertinent History Endocrine Medical History: No Pertinent History Musculoskeletal History: No Pertinent History GI Medical History: No Pertinent History History: No Pertinent History Psycho-Social History: Depression Female Reproductive Disorders: No Pertinent History - Past Surgical History Past Surgical History: No Neuro Surgical History: No Pertinent History Cardiac: No Pertinent History Respiratory: No Pertinent History Gastrointestinal: No Pertinent History Genitourinary: No Pertinent History Musculoskeletal: No Pertinent History Female Surgical History: No Pertinent History - Social History Smoking Status: Never smoker Exposure to second hand smoke: No Alcohol Use: None Drug Use: none Patient Lives Alone: No Significant Family History: no pertinent family hx - Nursing Vital Signs Nursing Vital Signs: Initial Vital Signs Temperature 98.0 F 06/21/21 08:54 Pulse Rate 101 H 06/21/21 08:54 Respiratory Rate 16 06/21/21 08:54 Blood Pressure 137/80 06/21/21 08:54 O2 Sat by Pulse Oximetry 97 06/21/21 08:54 Pain Scale Pain Intensity 2 - Physical Exam General Appearance: no apparent distress, alert, anxiety Eye Exam: PERRL/EOMI, eyes nml inspection Ears, Nose, Throat Exam: normal ENT inspection, moist mucous membranes Neck Exam: normal inspection, non-tender, supple, full range of motion Respiratory Exam: airway intact, No chest tenderness, No respiratory distress Gastrointestinal/Abdomen Exam: soft, normal bowel sounds, No tenderness, No guarding Pelvic Exam: not done Rectal Exam: not done Back Exam: normal inspection, normal range of motion, No CVA tenderness, No vertebral tenderness Extremity Exam: normal inspection Neurologic Exam: alert, oriented x 3, cooperative, fact checker II-XII nml as tested, n ormal mood/affect, nml cerebellar function, nml station & gait, sensation nml Skin Exam: normal color, warm, dry Lymphatic Exam: No adenopathy SpO2 Interpretation: normal O2 Delivery: Room Air - Course Nursing assessment & vital signs reviewed: Yes Ordered Tests: Active Orders 24 hr Category Date Time Status CBC W DIFF Stat Lab 06/21/21 10:20 Completed CMP Stat Lab 06/21/21 09:40 Completed HCG, Quantitative (Inhouse) Stat Lab 06/21/21 09:40 Completed Lab/Rad Data: Laboratory Result Diagrams 06/21/21 10:20 06/21/21 09:40 Laboratory Results 06/21/21 06/21/21 06/21/21 Range/Units 10:20 10:09 09:40 WBC 10.1 (4.0-10.5) K/mm3 RBC 4.55 (4.1-5.4) M/mm3 Hgb 14.1 (12.0-16.0) gm/dl Hct 40.7 (35-47) % MCV 89.5 (78-100) fl MCH 31.0 (26-32) pg MCHC 34.6 (32-36) g/dl RDW 12.8 (11.5-14.0) % Plt Count 259 (150-450) K/mm3 MPV 11.0 (7.5-11.0) fl Gran % 65.4 (36.0-66.0) % Eos # (Auto) 0.15 (0-0.5) Absolute Lymphs (auto) 2.34 (1.0-4.6) Absolute Monos (auto) 0.98 (0.0-1.3) Lymphocytes % 23.1 L (24.0-44.0) % Monocytes % 9.7 (0.0-12.0) % Eosinophils % 1.5 (0.00-5.0) % Basophils % 0.3 (0.0-0.4) % Absolute Granulocytes 6.64 (1.4-6.9) Basophils # 0.03 (0-0.4) Sodium 136 L (137-145) mmol/L Potassium 3.9 (3.5-5.1) mmol/L Chloride 104 (98-107) mmol/L Carbon Dioxide 20 L (22-30) mmol/L Anion Gap 16.3 H (5-15) MEQ/L BUN 13 (7-17) mg/dL Creatinine 0.60 (0.52-1.04) mg/dL Estimated GFR > 60.0 ML/MIN Glucose 84 (74-106) mg/dL Calcium 9.3 (8.4-10.2) mg/dL Total Bilirubin 0.90 (0.2-1.3) mg/dL AST 26 (14-36) U/L ALT 13 (0-35) U/L Alkaline Phosphatase 61 (38-126) U/L Serum Total Protein 8.0 (6.3-8.2) g/dL Albumin 4.4 (3.5-5.0) g/dL Beta HCG, Quant 5017.6 mIU/ml Urinalys Dipstick nc MAIN LAB Urine Color YELLOW (YELLOW) Urine Appearance CLEAR (CLEAR) Urine pH 5.5 (5-6) Ur Specific [place] 1.025 (1.005-1.025) POC Urine Protein Conf NEGATIVE (Negative) Urine Ketones NEGATIVE (NEGATIVE) Urine Nitrite NEGATIVE (NEGATIVE) Urine Bilirubin NEGATIVE (NEGATIVE) Urine Urobilinogen 0.2 (0-1) mg/dL Urine Leukocytes NEGATIVE (NEGATIVE) Urine WBC (Auto) 3-5 (0-5) /HPF Urine RBC (Auto) 0-2 (0-2) /HPF U Epithel Cells (Auto) RARE (FEW) /HPF Urine Bacteria (Auto) RARE (NEGATIVE) /HPF Urine RBC TRACE-INTACT (0-5) Yves/ul Urine Mucus (Auto) SLIGHT (NEGATIVE) /HPF Ur Culture Indicated? NO Urine Glucose NEGATIVE (NEGATIVE) mg/dL - Departure Departure Disposition: Home Clinical Impression: Encounter for medical screening examination Condition: Stable Critical Care Time: No Referrals: YULIET BINGHAM NP [Primary Care Provider] - Follow up/PCP as directed Additional Instructions: Drink plenty fluids. Follow-up with your [facility] celebrity services at your scheduled appointment.
[2021-06-21 10:18] LABS: Appearance CLEAR (CLEAR); Bilirubin NEGATIVE (NEGATIVE); Dipstick done @ ? MAIN LAB; Glucose NEGATIVE (NEGATIVE); Ketones NEGATIVE (NEGATIVE); Nitrite NEGATIVE (NEGATIVE); Ph 5.5 (5-6); Protein,Urine Dip NEGATIVE (Negative); RBC TRACE-INTACT Ery/ul (0-5); Specific Gravity 1.025 (1.005-1.025); Urobilinogen 0.2 mg/dL (0-1)
[2021-06-21 10:23] LABS: Bacteria RARE /HPF (NEGATIVE); Epithelial Cells RARE /HPF (FEW); Mucus SLIGHT /HPF (NEGATIVE); RBC 0-2 /HPF (0-2)
[2021-06-21 10:30] LABS: Absolute Neutrophil Ct (ANC) 6.64 (1.4-6.9); Basophil (Absolute #) 0.03 (0-0.4); Eosinophil % 1.5 % (0.00-5.0); Eosinophil (Absolute #) 0.15 (0-0.5); Hematocrit 40.7 % (35-47); Hemoglobin 14.1 gm/dl (12.0-16.0); Lymphocyte (Absolute #) 2.34 (1.0-4.6); Lymphocytes % 23.1 % (24.0-44.0); Mean Cell Volume 89.5 fl (78-100); Mean Corpuscular Hgb Concent. 34.6 g/dl (32-36); Monocyte (Absolute #) 0.98 (0.0-1.3); Monocytes % 9.7 % (0.0-12.0); Neutrophil % 65.4 % (36.0-66.0); Platelet Count 259 K/mm3 (150-450); Red Blood Count 4.55 M/mm3 (4.1-5.4); Red Cell Distribution Width 12.8 % (11.5-14.0); White Blood Count 10.1 K/mm3 (4.0-10.5)
[2021-06-21 11:02] LABS: ALBUMIN 4.4 g/dL (3.5-5.0); ALKALINE PHOSPHATASE 61 U/L (38-126); ANION GAP 16.3 MEQ/L (5-15); BLOOD UREA NITROGEN 13 mg/dL (7-17); CHLORIDE 104 mmol/L (98-107); Calcium 9.3 mg/dL (8.4-10.2); Carbon Dioxide 20 mmol/L (22-30); EST GLOMERULAR FILTRATION RATE > 60.0 ML/MIN; Glucose 84 mg/dL (74-106); HCG, Quantitative (Inhouse) 5017.6 mIU/ml; Potassium 3.9 mmol/L (3.5-5.1); SGOT/AST 26 U/L (14-36); SGPT/ALT 13 U/L (0-35); SODIUM 136 mmol/L (137-145)
[2021-06-21 11:09] VITALS: BP 138/82; PULSE 86; O2SAT 96
== END 2021-06-21 11:28 | disposition home or self-care (01) ==
LOC: ED 08:51
DX: Z34.81 Encounter for supervision of other normal pregnancy, first trimester (principal); Z3A.01 Less than 8 weeks gestation of pregnancy; R10.2 Pelvic and perineal pain
CPT/HCPCS: 36415; 80053; 81015; 84702; 85025; 99283

== ENCOUNTER 2021-11-18 14:05 | Observation (INO) | payer OTHER ==
[2021-11-18 14:27] VITALS: BP 127/78; PULSE 90
[2021-11-18 17:15] LABS: Appearance CLEAR (CLEAR); Bilirubin NEGATIVE (NEGATIVE); Dipstick done @ ? MAIN LAB; Glucose NEGATIVE (NEGATIVE); Ketones NEGATIVE (NEGATIVE); Nitrite NEGATIVE (NEGATIVE); Ph 6.5 (5-6); Protein,Urine Dip NEGATIVE (Negative); RBC NEGATIVE Ery/ul (0-5); Urobilinogen 0.2 mg/dL (0-1)
[2021-11-18 17:18] LABS: Bacteria RARE /HPF (NEGATIVE); Epithelial Cells RARE /HPF (FEW); Mucus SLIGHT /HPF (NEGATIVE); RBC 0-2 /HPF (0-2); Urine Cultured Indicated? NO; WBC 0-2 /HPF (0-5)
== END 2021-11-18 18:10 | disposition home or self-care (01) ==
LOC: OB 14:05
PROVIDERS: ADMIT Family Medicine; ATTEND Family Medicine
DX: Z34.82 Encounter for supervision of other normal pregnancy, second trimester (principal); Z3A.26 26 weeks gestation of pregnancy
CPT/HCPCS: 76815; 81015; 84112; G0378; 99213

== ENCOUNTER 2021-11-24 20:28 | Observation (INO) | payer OTHER ==
[2021-11-24 21:06] LABS: Appearance CLEAR (CLEAR); Bilirubin NEGATIVE (NEGATIVE); Glucose NEGATIVE (NEGATIVE); Ketones NEGATIVE (NEGATIVE)
[2021-11-24 21:07] LABS: Dipstick done @ ? MAIN LAB; Nitrite NEGATIVE (NEGATIVE); Protein,Urine Dip NEGATIVE (Negative); RBC NEGATIVE Ery/ul (0-5); Specific Gravity >=1.030 (1.005-1.025); Urobilinogen 0.2 mg/dL (0-1)
[2021-11-24 21:08] LABS: Epithelial Cells RARE /HPF (FEW); Mucus SLIGHT /HPF (NEGATIVE); WBC 0-2 /HPF (0-5)
[2021-11-24 21:10] LABS: Urine Cultured Indicated? NO
[2021-11-24 21:20] LABS: Amphetamine,Urine NEGATIVE (NEGATIVE); Barbiturate,Urine NEGATIVE (NEGATIVE); Benzodiazepine,Urine NEGATIVE (NEGATIVE); Methadone,Urine NEGATIVE (NEGATIVE); Opiate,Urine NEGATIVE (NEGATIVE); PCP,Urine NEGATIVE (NEGATIVE)
[2021-11-24 21:27] LABS: Cocaine,Urine NEGATIVE (NEGATIVE); THC,Urine NEGATIVE (NEGATIVE)
[2021-11-24 22:22] LABS: Absolute Neutrophil Ct (ANC) 12.04 x10^3/uL (1.4-6.9); Basophil (Absolute #) 0.07 x10^3/uL (0-0.4); Eosinophil % 1.6 % (0.00-5.0); Eosinophil (Absolute #) 0.25 x10^3/uL (0-0.5); Hematocrit 34.7 % (35-47); Hemoglobin 11.7 g/dL (12.0-16.0); Lymphocyte (Absolute #) 2.08 x10^3/uL (1.0-4.6); Lymphocytes % 12.9 % (24.0-44.0); Mean Cell Volume 90.8 fL (78-100); Mean Corpuscular Hemoglobin 30.6 pg (26-32); Mean Corpuscular Hgb Concent. 33.7 g/dL (32-36); Mean Platelet Volume 10.5 fL (7.5-11.0); Monocyte (Absolute #) 1.35 x10^3/uL (0.0-1.3); Monocytes % 8.4 % (0.0-12.0); Neutrophil % 74.7 % (36.0-66.0); Platelet Count 217 x10^3/uL (150-450); Red Blood Count 3.82 x10^6/uL (4.1-5.4); Red Cell Distribution Width 13.1 % (11.5-14.0); White Blood Count 16.1 x10^3/uL (4.0-10.5)
[2021-11-24 23:07] VITALS: BP 117/68; PULSE 95; O2SAT 98
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
== END 2021-11-24 23:23 | disposition home or self-care (01) ==
LOC: OB 20:28
PROVIDERS: ADMIT Family Medicine; ATTEND Family Medicine
DX: Z34.82 Encounter for supervision of other normal pregnancy, second trimester (principal); Z3A.27 27 weeks gestation of pregnancy
CPT/HCPCS: 36415; 76816; 80307; 81015; 85025; G0378

== ENCOUNTER 2021-12-08 11:30 | Observation (INO) | payer OTHER ==
[2021-12-08 12:05] LABS: Appearance CLOUDY (CLEAR); Bacteria MODERATE /HPF (NEGATIVE); Epithelial Cells FEW /HPF (FEW); Glucose NEGATIVE (NEGATIVE); Mucus MANY /HPF (NEGATIVE); RBC 51-100 /HPF (0-2)
[2021-12-08 12:06] LABS: Bilirubin SMALL (NEGATIVE); Dipstick done @ ? MAIN LAB; Ketones LARGE-80 (NEGATIVE); Nitrite NEGATIVE (NEGATIVE); Protein,Urine Dip 30 (Negative); RBC MODERATE Ery/ul (0-5); Specific Gravity >=1.030 (1.005-1.025); Urobilinogen 1 mg/dL (0-1)
[2021-12-08 12:07] LABS: Urine Cultured Indicated? YES
[2021-12-08 12:22] LABS: Absolute Neutrophil Ct (ANC) 9.61 x10^3/uL (1.4-6.9); Basophil (Absolute #) 0.05 x10^3/uL (0-0.4); Eosinophil % 0.8 % (0.00-5.0); Eosinophil (Absolute #) 0.11 x10^3/uL (0-0.5); Hematocrit 35.2 % (35-47); Hemoglobin 11.7 g/dL (12.0-16.0); Lymphocyte (Absolute #) 2.12 x10^3/uL (1.0-4.6); Lymphocytes % 15.8 % (24.0-44.0); Mean Cell Volume 90.3 fL (78-100); Mean Corpuscular Hgb Concent. 33.2 g/dL (32-36); Mean Platelet Volume 10.7 fL (7.5-11.0); Monocyte (Absolute #) 1.33 x10^3/uL (0.0-1.3); Monocytes % 9.9 % (0.0-12.0); Neutrophil % 71.7 % (36.0-66.0); Platelet Count 224 x10^3/uL (150-450); White Blood Count 13.4 x10^3/uL (4.0-10.5)
[2021-12-08 12:35] LABS: ALBUMIN 3.8 g/dL (3.5-5.0); ALKALINE PHOSPHATASE 110 U/L (38-126); ANION GAP 14.2 MEQ/L (5-15); BLOOD UREA NITROGEN 9 mg/dL (7-17); CHLORIDE 104 mmol/L (98-107); Calcium 8.9 mg/dL (8.4-10.2); Carbon Dioxide 21 mmol/L (22-30); Creatinine 1 0.68 mg/dL (0.52-1.04); EST GLOMERULAR FILTRATION RATE > 60.0 ML/MIN; Glucose 102 mg/dL (74-106); Potassium 3.5 mmol/L (3.5-5.1); SGOT/AST 22 U/L (14-36); SGPT/ALT 20 U/L (0-35); SODIUM 136 mmol/L (137-145); Total Protein 7.3 g/dL (6.3-8.2)
[2021-12-08] MEDS ORDERED: Zofran 4 MG/2 ML VIAL IV PRN (13:30)
[2021-12-08] MEDS ORDERED: MORPHINE SULFATE 4 MG INJ IV PRN (13:34)
[2021-12-08] MEDS: ROCEPHIN 2 Gm-D5w 50ML BAG** 2 G/50 ML IVPB IV SCH (13:53)
[2021-12-08] MEDS ORDERED: MORPHINE SULFATE 2 MG INJ IV ONE (14:36)
[2021-12-08] MEDS: Lactated Ringers 1,000 ML IV SCH (19:30)
--- NOTE | 2021-12-08 21:26 | XRAY ---
Indication: Left flank pain. Pyelonephritis. Two-dimensional renal sonogram performed. Comparison: None Both kidneys are normal in reniform shape with normal color perfusion. Right kidney measures 9.8 x 5.7 x 5.6 cm and the left measures 12.1 x 5.8 x 5.5 cm. No focal solid/cystic renal mass or hydronephrosis. Cortical medullary differentiation preserved. Urinary bladder is empty. Ureteral jets not seen within the allotted exam time. Impression: Negative renal sonogram.
[2021-12-08] MEDS ORDERED: Ambien 5 MG Tablet PO PRN (22:00)
[2021-12-09] MEDS: Lactated Ringers 1,000 ML IV SCH (04:06)
[2021-12-09 06:00] LABS: Basophil (Absolute #) 0.04 x10^3/uL (0-0.4); Eosinophil % 1.2 % (0.00-5.0); Eosinophil (Absolute #) 0.15 x10^3/uL (0-0.5); Hematocrit 31.2 % (35-47); Hemoglobin 10.3 g/dL (12.0-16.0); Lymphocyte (Absolute #) 2.11 x10^3/uL (1.0-4.6); Lymphocytes % 17.5 % (24.0-44.0); Mean Cell Volume 89.9 fL (78-100); Mean Corpuscular Hemoglobin 29.7 pg (26-32); Mean Platelet Volume 10.7 fL (7.5-11.0); Monocyte (Absolute #) 1.12 x10^3/uL (0.0-1.3); Monocytes % 9.3 % (0.0-12.0); Neutrophil % 70.6 % (36.0-66.0); Platelet Count 183 x10^3/uL (150-450); Red Blood Count 3.47 x10^6/uL (4.1-5.4); Red Cell Distribution Width 12.9 % (11.5-14.0); White Blood Count 12.1 x10^3/uL (4.0-10.5)
[2021-12-09 06:39] LABS: ALKALINE PHOSPHATASE 91 U/L (38-126); ANION GAP 8.9 MEQ/L (5-15); BLOOD UREA NITROGEN 5 mg/dL (7-17); CHLORIDE 106 mmol/L (98-107); Calcium 8.1 mg/dL (8.4-10.2); Carbon Dioxide 22 mmol/L (22-30); Creatinine 1 0.51 mg/dL (0.52-1.04); EST GLOMERULAR FILTRATION RATE > 60.0 ML/MIN; Glucose 91 mg/dL (74-106); Potassium 3.3 mmol/L (3.5-5.1); SGOT/AST 19 U/L (14-36); SGPT/ALT 19 U/L (0-35); SODIUM 134 mmol/L (137-145); Total Protein 5.9 g/dL (6.3-8.2)
[2021-12-09 08:57] VITALS: BP 101/56; PULSE 77; O2SAT 95
--- NOTE | 2021-12-09 09:36 | PCM.HP ---
History of Present Illness - Chief Complaint Chief Complaint: IUP History of Present Illness: is a 26 year old female. 26 yo iup 29 wks with no signific pmhx currently admitted for left flank pain that began all of a sudden yesterday with associated nausea and vomiting. pt had ua indicating uti with elevated wbc. Medications & Allergies Home Medications: Home Medication List Acetaminophen 500 mg [Tylenol Extra Strength 500 mg] 1 tab PO UD 10/12/21 [History Confirmed 12/08/21] Ondansetron ODT 4 MG [Zofran Odt 4 mg] 4 mg PO Q4HPRN PRN 10/12/21 [History Confirmed 12/08/21] Pnv No.95/Ferrous Fum/Folic AC [ Caplet] 1 each PO DAILY 10/12/21 [History Confirmed 12/08/21] Allergies/Adverse Reactions: Allergies Allergy/AdvReac Type Severity Reaction Status Date / Time No Known Drug Allergies Allergy Verified 12/08/21 21:56 - Past Medical History Past Medical History: Yes Neurological History: Migraines ENT History: No Pertinent History Cardiac History: No Pertinent History Respiratory History: No Pertinent History Endocrine Medical History: No Pertinent History Musculoskelatal History: No Pertinent History GI Medical History: No Pertinent History History: No Pertinent History Pyscho-Social History: Depression Reproductive Disorders: No Pertinent History Comment: 21 weeks and 4 days - Female History Are you now?: Yes - Past Surgical History Past Surgical History: No Neuro Surgical History: No Pertinent History Cardiac History: No Pertinent History Respiratory Surgery: No Pertinent History GI Surgical History: No Pertinent History Genitourinary Surgical Hx: No Pertinent History Musculskeletal Surgical Hx: No Pertinent History Female Surgical History: No Pertinent History - Social History Smoking Status: Never smoker Exposure to second hand smoke: No Alcohol: None Drug Use: none Significant Family History: no pertinent family hx - Physical Exam Vital Signs: Vital Signs - 24 hr Temp Pulse Resp BP BP BP Pulse Ox 12/09/21 08:00 98.1 F 77 18 101/56 95 12/09/21 04:00 97.4 F 75 17 109/58 98 12/09/21 00:00 97 F 85 15 104/62 96 12/08/21 20:00 97.1 F 90 18 107/70 97 12/08/21 14:45 77 18 107/67 98 12/08/21 12:08 97.6 F 68 18 129/83 96 12/08/21 11:30 97.6 F 68 18 129/83 96 Neurologic Exam: oriented x 3 Gastrointestinal/Abdomen Exam: other (left flank pain) Pelvic Exam: not done, other (closed thick posterior per nursing) Results - Labs Lab/Micro Results: Lab Results-Last 24 Hours 12/08/21 12/08/21 12/08/21 Range/Units 12:00 12:10 12:10 WBC 13.4 H (4.0-10.5) x10^3/uL RBC 3.90 L (4.1-5.4) x10^6/uL Hgb 11.7 L (12.0-16.0) g/dL Hct 35.2 (35-47) % MCV 90.3 (78-100) fL MCH 30.0 (26-32) pg MCHC 33.2 (32-36) g/dL RDW 13.0 (11.5-14.0) % Plt Count 224 (150-450) x10^3/uL MPV 10.7 (7.5-11.0) fL Gran % 71.7 H (36.0-66.0) % Immature Gran % (Auto) 1.4 H (0.00-0.4) % Nucleat RBC Rel Count 0.0 (0.00-0.1) % Eos # (Auto) 0.11 (0-0.5) x10^3/uL Immature Gran # (Auto) 0.19 H (0.00-0.03) x10^3u/L Absolute Lymphs (auto) 2.12 (1.0-4.6) x10^3/uL Absolute Monos (auto) 1.33 H (0.0-1.3) x10^3/uL Absolute Nucleated RBC 0.00 (0.00-0.01) x10^3u/L Lymphocytes % 15.8 L (24.0-44.0) % Monocytes % 9.9 (0.0-12.0) % Eosinophils % 0.8 (0.00-5.0) % Basophils % 0.4 (0.0-0.4) % Absolute Granulocytes 9.61 H (1.4-6.9) x10^3/uL Basophils # 0.05 (0-0.4) x10^3/uL Sodium 136 L (137-145) mmol/L Potassium 3.5 (3.5-5.1) mmol/L Chloride 104 (98-107) mmol/L Carbon Dioxide 21 L (22-30) mmol/L Anion Gap 14.2 (5-15) MEQ/L BUN 9 (7-17) mg/dL Creatinine 0.68 (0.52-1.04) mg/dL Estimated GFR > 60.0 ML/MIN Glucose 102 (74-106) mg/dL Calcium 8.9 (8.4-10.2) mg/dL Total Bilirubin 1.00 (0.2-1.3) mg/dL AST 22 (14-36) U/L ALT 20 (0-35) U/L Alkaline Phosphatase 110 (38-126) U/L Serum Total Protein 7.3 (6.3-8.2) g/dL Albumin 3.8 (3.5-5.0) g/dL Urinalys Dipstick Clnc MAIN LAB Urine Color YELLOW (YELLOW) Urine Appearance CLOUDY (CLEAR) Urine pH 6.0 (5-6) Ur Specific [place] >=1.030 (1.005-1.025) POC Urine Protein Conf 30 (Negative) Urine Ketones LARGE-80 (NEGATIVE) Urine Nitrite NEGATIVE (NEGATIVE) Urine Bilirubin SMALL (NEGATIVE) Urine Urobilinogen 1 (0-1) mg/dL Urine Leukocytes TRACE (NEGATIVE) Urine WBC (Auto) 11-15 (0-5) /HPF Urine RBC (Auto) 51-100 (0-2) /HPF U Epithel Cells (Auto) FEW (FEW) /HPF Urine Bacteria (Auto) MODERATE (NEGATIVE) /HPF Urine RBC MODERATE (0-5) Yves/ul Urine Mucus (Auto) MANY (NEGATIVE) /HPF Ur Culture Indicated? YES Urine Glucose NEGATIVE (NEGATIVE) mg/dL 12/09/21 12/09/21 Range/Units 05:40 05:40 WBC 12.1 H (4.0-10.5) x10^3/uL RBC 3.47 L (4.1-5.4) x10^6/uL Hgb 10.3 L (12.0-16.0) g/dL Hct 31.2 L (35-47) % MCV 89.9 (78-100) fL MCH 29.7 (26-32) pg MCHC 33.0 (32-36) g/dL RDW 12.9 (11.5-14.0) % Plt Count 183 (150-450) x10^3/uL MPV 10.7 (7.5-11.0) fL Gran % 70.6 H (36.0-66.0) % Immature Gran % (Auto) 1.1 H (0.00-0.4) % Nucleat RBC Rel Count 0.0 (0.00-0.1) % Eos # (Auto) 0.15 (0-0.5) x10^3/uL Immature Gran # (Auto) 0.13 H (0.00-0.03) x10^3u/L Absolute Lymphs (auto) 2.11 (1.0-4.6) x10^3/uL Absolute Monos (auto) 1.12 (0.0-1.3) x10^3/uL Absolute Nucleated RBC 0.00 (0.00-0.01) x10^3u/L Lymphocytes % 17.5 L (24.0-44.0) % Monocytes % 9.3 (0.0-12.0) % Eosinophils % 1.2 (0.00-5.0) % Basophils % 0.3 (0.0-0.4) % Absolute Granulocytes 8.50 H (1.4-6.9) x10^3/uL Basophils # 0.04 (0-0.4) x10^3/uL Sodium 134 L (137-145) mmol/L Potassium 3.3 L (3.5-5.1) mmol/L Chloride 106 (98-107) mmol/L Carbon Dioxide 22 (22-30) mmol/L Anion Gap 8.9 (5-15) MEQ/L BUN 5 L (7-17) mg/dL Creatinine 0.51 L (0.52-1.04) mg/dL Estimated GFR > 60.0 ML/MIN Glucose 91 (74-106) mg/dL Calcium 8.1 L (8.4-10.2) mg/dL Total Bilirubin 0.80 (0.2-1.3) mg/dL AST 19 (14-36) U/L ALT 19 (0-35) U/L Alkaline Phosphatase 91 (38-126) U/L Serum Total Protein 5.9 L (6.3-8.2) g/dL Albumin 3.0 L (3.5-5.0) g/dL Urinalys Dipstick Clnc Urine Color (YELLOW) Urine Appearance (CLEAR) Urine pH (5-6) Ur Specific [place] (1.005-1.025) POC Urine Protein Conf (Negative) Urine Ketones (NEGATIVE) Urine Nitrite (NEGATIVE) Urine Bilirubin (NEGATIVE) Urine Urobilinogen (0-1) mg/dL Urine Leukocytes (NEGATIVE) Urine WBC (Auto) (0-5) /HPF Urine RBC (Auto) (0-2) /HPF U Epithel Cells (Auto) (FEW) /HPF Urine Bacteria (Auto) (NEGATIVE) /HPF Urine RBC (0-5) Yves/ul Urine Mucus (Auto) (NEGATIVE) /HPF Ur Culture Indicated? Urine Glucose (NEGATIVE) mg/dL - Radiology Impressions Radiology Exams & Impressions: Radiology Procedures Category Date Time Status Renal Ultrasound [KIDNEY] [US] Stat Exams 12/08/21 14:39 Completed Assessment/Plan (1) Pyelonephritis affecting in third trimester Current Visit: Yes Status: Acute Code(s): O23.03 - INFECTIONS OF KIDNEY IN , THIRD TRIMESTER
--- NOTE | 2021-12-09 09:43 | PCM.DS ---
Discharge Summary Date of Admission: 12/08/21 11:30 Admitting Physician: NAWAF JIMENES DO Primary Care Provider: SAYRA JESUS Allergies Allergies No Known Drug Allergies Allergy (Verified 12/08/21 21:56) Hospital Summary - Hospital Course Hospital Course: pt admitted on dec 08 for being 29 wks gestation with suspected pyelonephritis and was placed on iv ceftriaxone 2gm with last dose given on dec 09. pt had ua indicating uti with elevated wbc to 13. pt today feeling much better with improved wbc to 12. pt will go home today on keflex 500mg q 6 hrs for 10 days and fu with provider as scheduled. all questions answered to her satisfaction. - Vitals & Intake/Output Vital Signs: Vital Signs Temperature 98.1 F 12/09/21 08:00 Pulse Rate 77 12/09/21 08:00 Respiratory Rate 18 12/09/21 08:00 Blood Pressure 101/56 12/09/21 08:00 O2 Sat by Pulse Oximetry 95 12/09/21 08:00 Intake & Output: Intake & Output 12/06/21 12/07/21 12/08/21 12/09/21 11:59 11:59 11:59 11:59 Intake Total 1876 Balance 1876 Weight 83.915 kg - Lab Result Diagrams: 12/09/21 05:40 12/09/21 05:40 Lab Results-Last 24 Hrs: Lab Results-Last 24 Hours 12/08/21 12/08/21 12/08/21 Range/Units 12:00 12:10 12:10 WBC 13.4 H (4.0-10.5) x10^3/uL RBC 3.90 L (4.1-5.4) x10^6/uL Hgb 11.7 L (12.0-16.0) g/dL Hct 35.2 (35-47) % MCV 90.3 (78-100) fL MCH 30.0 (26-32) pg MCHC 33.2 (32-36) g/dL RDW 13.0 (11.5-14.0) % Plt Count 224 (150-450) x10^3/uL MPV 10.7 (7.5-11.0) fL Gran % 71.7 H (36.0-66.0) % Immature Gran % (Auto) 1.4 H (0.00-0.4) % Nucleat RBC Rel Count 0.0 (0.00-0.1) % Eos # (Auto) 0.11 (0-0.5) x10^3/uL Immature Gran # (Auto) 0.19 H (0.00-0.03) x10^3u/L Absolute Lymphs (auto) 2.12 (1.0-4.6) x10^3/uL Absolute Monos (auto) 1.33 H (0.0-1.3) x10^3/uL Absolute Nucleated RBC 0.00 (0.00-0.01) x10^3u/L Lymphocytes % 15.8 L (24.0-44.0) % Monocytes % 9.9 (0.0-12.0) % Eosinophils % 0.8 (0.00-5.0) % Basophils % 0.4 (0.0-0.4) % Absolute Granulocytes 9.61 H (1.4-6.9) x10^3/uL Basophils # 0.05 (0-0.4) x10^3/uL Sodium 136 L (137-145) mmol/L Potassium 3.5 (3.5-5.1) mmol/L Chloride 104 (98-107) mmol/L Carbon Dioxide 21 L (22-30) mmol/L Anion Gap 14.2 (5-15) MEQ/L BUN 9 (7-17) mg/dL Creatinine 0.68 (0.52-1.04) mg/dL Estimated GFR > 60.0 ML/MIN Glucose 102 (74-106) mg/dL Calcium 8.9 (8.4-10.2) mg/dL Total Bilirubin 1.00 (0.2-1.3) mg/dL AST 22 (14-36) U/L ALT 20 (0-35) U/L Alkaline Phosphatase 110 (38-126) U/L Serum Total Protein 7.3 (6.3-8.2) g/dL Albumin 3.8 (3.5-5.0) g/dL Urinalys Dipstick Clnc MAIN LAB Urine Color YELLOW (YELLOW) Urine Appearance CLOUDY (CLEAR) Urine pH 6.0 (5-6) Ur Specific [place] >=1.030 (1.005-1.025) POC Urine Protein Conf 30 (Negative) Urine Ketones LARGE-80 (NEGATIVE) Urine Nitrite NEGATIVE (NEGATIVE) Urine Bilirubin SMALL (NEGATIVE) Urine Urobilinogen 1 (0-1) mg/dL Urine Leukocytes TRACE (NEGATIVE) Urine WBC (Auto) 11-15 (0-5) /HPF Urine RBC (Auto) 51-100 (0-2) /HPF U Epithel Cells (Auto) FEW (FEW) /HPF Urine Bacteria (Auto) MODERATE (NEGATIVE) /HPF Urine RBC MODERATE (0-5) Yves/ul Urine Mucus (Auto) MANY (NEGATIVE) /HPF Ur Culture Indicated? YES Urine Glucose NEGATIVE (NEGATIVE) mg/dL 12/09/21 12/09/21 Range/Units 05:40 05:40 WBC 12.1 H (4.0-10.5) x10^3/uL RBC 3.47 L (4.1-5.4) x10^6/uL Hgb 10.3 L (12.0-16.0) g/dL Hct 31.2 L (35-47) % MCV 89.9 (78-100) fL MCH 29.7 (26-32) pg MCHC 33.0 (32-36) g/dL RDW 12.9 (11.5-14.0) % Plt Count 183 (150-450) x10^3/uL MPV 10.7 (7.5-11.0) fL Gran % 70.6 H (36.0-66.0) % Immature Gran % (Auto) 1.1 H (0.00-0.4) % Nucleat RBC Rel Count 0.0 (0.00-0.1) % Eos # (Auto) 0.15 (0-0.5) x10^3/uL Immature Gran # (Auto) 0.13 H (0.00-0.03) x10^3u/L Absolute Lymphs (auto) 2.11 (1.0-4.6) x10^3/uL Absolute Monos (auto) 1.12 (0.0-1.3) x10^3/uL Absolute Nucleated RBC 0.00 (0.00-0.01) x10^3u/L Lymphocytes % 17.5 L (24.0-44.0) % Monocytes % 9.3 (0.0-12.0) % Eosinophils % 1.2 (0.00-5.0) % Basophils % 0.3 (0.0-0.4) % Absolute Granulocytes 8.50 H (1.4-6.9) x10^3/uL Basophils # 0.04 (0-0.4) x10^3/uL Sodium 134 L (137-145) mmol/L Potassium 3.3 L (3.5-5.1) mmol/L Chloride 106 (98-107) mmol/L Carbon Dioxide 22 (22-30) mmol/L Anion Gap 8.9 (5-15) MEQ/L BUN 5 L (7-17) mg/dL Creatinine 0.51 L (0.52-1.04) mg/dL Estimated GFR > 60.0 ML/MIN Glucose 91 (74-106) mg/dL Calcium 8.1 L (8.4-10.2) mg/dL Total Bilirubin 0.80 (0.2-1.3) mg/dL AST 19 (14-36) U/L ALT 19 (0-35) U/L Alkaline Phosphatase 91 (38-126) U/L Serum Total Protein 5.9 L (6.3-8.2) g/dL Albumin 3.0 L (3.5-5.0) g/dL Urinalys Dipstick Clnc Urine Color (YELLOW) Urine Appearance (CLEAR) Urine pH (5-6) Ur Specific [place] (1.005-1.025) POC Urine Protein Conf (Negative) Urine Ketones (NEGATIVE) Urine Nitrite (NEGATIVE) Urine Bilirubin (NEGATIVE) Urine Urobilinogen (0-1) mg/dL Urine Leukocytes (NEGATIVE) Urine WBC (Auto) (0-5) /HPF Urine RBC (Auto) (0-2) /HPF U Epithel Cells (Auto) (FEW) /HPF Urine Bacteria (Auto) (NEGATIVE) /HPF Urine RBC (0-5) Yves/ul Urine Mucus (Auto) (NEGATIVE) /HPF Ur Culture Indicated? Urine Glucose (NEGATIVE) mg/dL - Radiology Exams Ordered Rad Exams-Entire Visit: Radiology Procedures Category Date Time Status Renal Ultrasound [KIDNEY] [US] Stat Exams 12/08/21 14:39 Completed Final Diagnosis/Problem List - Final Discharge Diagnosis/Problem (1) Pyelonephritis affecting in third trimester Current Visit: Yes Status: Acute Code(s): O23.03 - INFECTIONS OF KIDNEY IN , THIRD TRIMESTER - Discharge Disposition: Home, Self-Care Condition: Stable Prescriptions: New Cephalexin Mh 500 mg [Keflex 500 mg] 500 mg PO Q6H #40 cap No Action Pnv No.95/Ferrous Fum/Folic AC [ Caplet] 1 each PO DAILY Ondansetron ODT 4 MG [Zofran Odt 4 mg] 4 mg PO Q4HPRN PRN PRN Reason: Nausea Acetaminophen 500 mg [Tylenol Extra Strength 500 mg] 1 tab PO UD Follow up with: SAYRA JESUS MD [Primary Care Provider] - Call for Appointment (should fu with provider as scheduled)
[2021-12-09] MEDS: ROCEPHIN 2 Gm-D5w 50ML BAG** 2 G/50 ML IVPB IV SCH (10:51)
== END 2021-12-09 11:50 | disposition home or self-care (01) ==
LOC: OB 11:30
PROVIDERS: ADMIT Obstetrics & Gynecology; ATTEND Obstetrics & Gynecology
DX: O23.03 Infections of kidney in pregnancy, third trimester (principal); Z3A.29 29 weeks gestation of pregnancy; Z20.828 Contact with and (suspected) exposure to other viral communicable diseases
CPT/HCPCS: 36415; 76770; 80053; 81015; 85025; 87086; G0378; 99218; J0696; J2270; J2405

== ENCOUNTER 2022-01-10 11:19 | Observation (INO) | payer OTHER ==
[2022-01-10 11:36] VITALS: PULSE 80; O2SAT 98
[2022-01-10 11:54] LABS: Appearance CLEAR (CLEAR); Bilirubin NEGATIVE (NEGATIVE); Dipstick done @ ? MAIN LAB; Glucose NEGATIVE (NEGATIVE); Ketones NEGATIVE (NEGATIVE); Nitrite NEGATIVE (NEGATIVE); Protein,Urine Dip NEGATIVE (Negative); RBC NEGATIVE Ery/ul (0-5); Urobilinogen 0.2 mg/dL (0-1)
[2022-01-10 11:58] LABS: Bacteria FEW /HPF (NEGATIVE); Epithelial Cells RARE /HPF (FEW); Mucus SLIGHT /HPF (NEGATIVE); RBC 0-2 /HPF (0-2)
[2022-01-10 12:00] LABS: Urine Cultured Indicated? YES
[2022-01-10] MEDS ORDERED: Lactated Ringers 1,000 ML IV ONE (12:02)
[2022-01-10 12:14] VITALS: BP 124/80
[2022-01-10] MEDS ORDERED: BRETHINE 1 MG/ML SQ ONE (13:12)
== END 2022-01-10 14:30 | disposition home or self-care (01) ==
LOC: OB 11:19
PROVIDERS: ADMIT Obstetrics & Gynecology; ATTEND Obstetrics & Gynecology
DX: Z34.83 Encounter for supervision of other normal pregnancy, third trimester (principal); Z3A.34 34 weeks gestation of pregnancy
CPT/HCPCS: 81015; 87086

== ENCOUNTER 2022-01-25 14:27 | Observation (INO) | payer OTHER ==
[2022-01-25 15:20] LABS: Amphetamine,Urine NEGATIVE (NEGATIVE); Barbiturate,Urine NEGATIVE (NEGATIVE); Benzodiazepine,Urine NEGATIVE (NEGATIVE); Cocaine,Urine NEGATIVE (NEGATIVE); Methadone,Urine NEGATIVE (NEGATIVE); Opiate,Urine NEGATIVE (NEGATIVE); PCP,Urine NEGATIVE (NEGATIVE); THC,Urine NEGATIVE (NEGATIVE)
[2022-01-25 15:22] VITALS: BP 110/76; PULSE 83; O2SAT 95
[2022-01-25] MEDS ORDERED: Lactated Ringers 1,000 ML IV ONE (15:42)
[2022-01-25 16:58] LABS: Bacteria RARE /HPF (NEGATIVE); Epithelial Cells RARE /HPF (FEW); Mucus SLIGHT /HPF (NEGATIVE); RBC 0-2 /HPF (0-2); WBC 0-2 /HPF (0-5)
[2022-01-25 16:59] LABS: Appearance SLIGHTLY CLOUDY (CLEAR); Bilirubin NEGATIVE (NEGATIVE); Dipstick done @ ? MAIN LAB; Glucose NEGATIVE (NEGATIVE); Ketones SMALL-15 (NEGATIVE); Nitrite NEGATIVE (NEGATIVE); Protein,Urine Dip NEGATIVE (Negative); RBC NEGATIVE Ery/ul (0-5); Urobilinogen 0.2 mg/dL (0-1)
[2022-01-25 17:00] LABS: Urine Cultured Indicated? NO
== END 2022-01-25 18:50 | disposition home or self-care (01) ==
LOC: OB 14:27
PROVIDERS: ADMIT Family Medicine; ATTEND Family Medicine
DX: Z34.83 Encounter for supervision of other normal pregnancy, third trimester (principal); Z3A.36 36 weeks gestation of pregnancy
CPT/HCPCS: 80307; 81015; 99213; G0378

== ENCOUNTER 2022-02-01 11:37 | Observation (INO) | payer OTHER ==
[2022-02-01 12:10] VITALS: BP 122/79; PULSE 75
== END 2022-02-01 12:30 | disposition home or self-care (01) ==
LOC: OB 11:37
PROVIDERS: ADMIT Family Medicine; ATTEND Family Medicine
DX: Z34.83 Encounter for supervision of other normal pregnancy, third trimester (principal); Z3A.37 37 weeks gestation of pregnancy
CPT/HCPCS: G0378

== ENCOUNTER 2022-02-12 10:43 | Observation (INO) | payer OTHER ==
[2022-02-12] MEDS ORDERED: Nubain 10 MG/ML IV PRN (17:00)
[2022-02-12] MEDS ORDERED: Zofran 4 MG/2 ML VIAL IV PRN (17:00)
[2022-02-12] MEDS ORDERED: STADOL 2 MG IV PRN (17:00)
[2022-02-12] MEDS ORDERED: TYLENOL EXTRA STRENGTH 500 MG PO PRN (17:00)
[2022-02-12] MEDS: CYTOTEC PO SCH ×4 (17:47→23:59)
[2022-02-12 18:01] LABS: Absolute Neutrophil Ct (ANC) 9.88 x10^3/uL (1.4-6.9); Basophil (Absolute #) 0.06 x10^3/uL (0-0.4); Eosinophil % 0.5 % (0.00-5.0); Eosinophil (Absolute #) 0.06 x10^3/uL (0-0.5); Hematocrit 37.6 % (35-47); Hemoglobin 12.7 g/dL (12.0-16.0); Lymphocyte (Absolute #) 1.95 x10^3/uL (1.0-4.6); Mean Cell Volume 87.9 fL (78-100); Mean Corpuscular Hemoglobin 29.7 pg (26-32); Mean Corpuscular Hgb Concent. 33.8 g/dL (32-36); Mean Platelet Volume 12.8 fL (7.5-11.0); Monocyte (Absolute #) 0.97 x10^3/uL (0.0-1.3); Monocytes % 7.5 % (0.0-12.0); Neutrophil % 75.7 % (36.0-66.0); Platelet Count 172 x10^3/uL (150-450); Red Blood Count 4.28 x10^6/uL (4.1-5.4); Red Cell Distribution Width 13.1 % (11.5-14.0)
[2022-02-12 18:40] LABS: Amphetamine,Urine NEGATIVE (NEGATIVE); Barbiturate,Urine NEGATIVE (NEGATIVE); Benzodiazepine,Urine NEGATIVE (NEGATIVE); Cocaine,Urine NEGATIVE (NEGATIVE); Methadone,Urine NEGATIVE (NEGATIVE); Opiate,Urine NEGATIVE (NEGATIVE); PCP,Urine NEGATIVE (NEGATIVE); THC,Urine NEGATIVE (NEGATIVE)
[2022-02-12 19:16] LABS: ABO TYPING O; Antibody Screen NEGATIVE (NEGATIVE); RH TYPING POSITIVE
[2022-02-13] MEDS ORDERED: FENTANYL 2 MCG-BUPIV 0.125%-NS 250 ML Epidur 250 ML EPIDURAL SCH (00:01)
[2022-02-13] MEDS ORDERED: Ephedrine Sulfate 50 MG/ML IV PRN (00:01)
[2022-02-13] MEDS ORDERED: Lactated Ringers 1,000 ML IV SCH (00:01)
[2022-02-13] MEDS ORDERED: XYLOCAINE 1% HCL 20 ML MDV IJ PRN (00:01)
[2022-02-13] MEDS ORDERED: Lactated Ringers 1,000 ML IV ONE (00:01)
[2022-02-13] MEDS: CYTOTEC PO SCH ×3 (02:08→05:45)
[2022-02-13] MEDS ORDERED: PITOCIN 30 UNITS/ LR 500 ML 30 UNITS/500 ML PLAST..BAG IV SCH (06:00)
[2022-02-13 06:55] VITALS: O2SAT 94
[2022-02-13] MEDS ORDERED: MOTRIN 400 MG PO PRN (13:52)
[2022-02-13] MEDS ORDERED: TUCKS TP PRN (13:52)
[2022-02-13] MEDS ORDERED: LANSINOH 40 GM TOP PRN (13:52)
[2022-02-13] MEDS ORDERED: Dermoplast Spray TP PRN (13:52)
[2022-02-13 18:22] VITALS: BP 100/54; PULSE 88
[2022-02-14] MEDS ORDERED: FERREX 150 PO SCH (10:00)
[2022-02-14] MEDS ORDERED: Docusate Sodium 100 MG PO SCH (10:00)
[2022-02-14 10:09] LABS: RPR Non Reactive (Non Reactive)
[2022-02-14 10:10] LABS: HBsAg Screen Negative (Negative)
[2022-02-14] MEDS ORDERED: Adacel Vial IM ONE (13:52)
[2022-02-14] MEDS ORDERED: M-M-R II Vaccine With Diluent SQ ONE (13:52)
[2022-02-14 15:24] LABS: HIV Screen 4th Generation wRfx Non Reactive (Non Reactive)
== END 2022-02-13 19:17 | disposition home or self-care (01) ==
LOC: OB 17:00
PROVIDERS: ADMIT Family Medicine; ATTEND Family Medicine
DX: Z34.83 Encounter for supervision of other normal pregnancy, third trimester (principal); Z3A.39 39 weeks gestation of pregnancy
CPT/HCPCS: 36415; 80307; 85025; 86592; 86850; 86900; 86901; 87340; 87389; G0378; J2590; A9270-GY

== ENCOUNTER 2022-02-14 12:39 | Observation (INO) | payer OTHER ==
[2022-02-14 14:07] VITALS: BP 122/80; PULSE 54; O2SAT 96
== END 2022-02-14 14:21 | disposition home or self-care (01) ==
LOC: OB 12:39
PROVIDERS: ADMIT Family Medicine; ATTEND Family Medicine
DX: Z34.83 Encounter for supervision of other normal pregnancy, third trimester (principal); Z3A.39 39 weeks gestation of pregnancy
CPT/HCPCS: 99213; G0378

== ENCOUNTER 2022-02-17 11:35 | Observation (INO) | payer OTHER ==
[2022-02-17 12:37] VITALS: BP 112/68; PULSE 85; O2SAT 95
== END 2022-02-17 15:10 | disposition home or self-care (01) ==
LOC: OB 11:35
PROVIDERS: ADMIT Family Medicine; ATTEND Family Medicine
DX: Z34.83 Encounter for supervision of other normal pregnancy, third trimester (principal); Z3A.40 40 weeks gestation of pregnancy
CPT/HCPCS: 99213; G0378

== ENCOUNTER 2022-02-18 01:30 | Inpatient (IN) | payer OTHER ==
[2022-02-18] MEDS ORDERED: Zofran 4 MG/2 ML VIAL IV PRN (14:07)
[2022-02-18] MEDS ORDERED: Ephedrine Sulfate 50 MG/ML IV PRN (14:07)
[2022-02-18] MEDS ORDERED: FENTANYL 2 MCG-BUPIV 0.125%-NS 250 ML Epidur 250 ML EPIDURAL SCH (14:15)
[2022-02-18] MEDS ORDERED: PITOCIN 30 UNITS/ LR 500 ML 30 UNITS/500 ML PLAST..BAG IV SCH (14:30)
[2022-02-18] MEDS ORDERED: Lactated Ringers 1,000 ML IV ONE (15:00)
[2022-02-18] MEDS: CYTOTEC PO SCH ×2 (16:14→19:19)
[2022-02-18 16:16] LABS: Absolute Neutrophil Ct (ANC) 8.76 x10^3/uL (1.4-6.9); Basophil (Absolute #) 0.04 x10^3/uL (0-0.4); Eosinophil % 0.7 % (0.00-5.0); Eosinophil (Absolute #) 0.08 x10^3/uL (0-0.5); Hematocrit 39.6 % (35-47); Hemoglobin 13.2 g/dL (12.0-16.0); Lymphocyte (Absolute #) 2.01 x10^3/uL (1.0-4.6); Lymphocytes % 16.8 % (24.0-44.0); Mean Cell Volume 88.2 fL (78-100); Mean Corpuscular Hemoglobin 29.4 pg (26-32); Mean Corpuscular Hgb Concent. 33.3 g/dL (32-36); Mean Platelet Volume 12.6 fL (7.5-11.0); Monocyte (Absolute #) 1.02 x10^3/uL (0.0-1.3); Monocytes % 8.5 % (0.0-12.0); Neutrophil % 72.9 % (36.0-66.0); Platelet Count 185 x10^3/uL (150-450); Red Blood Count 4.49 x10^6/uL (4.1-5.4); Red Cell Distribution Width 13.2 % (11.5-14.0)
[2022-02-18 17:27] LABS: ABO TYPING O; Antibody Screen NEGATIVE (NEGATIVE); RH TYPING POSITIVE
[2022-02-18] MEDS ORDERED: XYLOCAINE 1% HCL 20 ML MDV IJ PRN (19:50)
[2022-02-19 01:04] LABS: Amphetamine,Urine NEGATIVE (NEGATIVE); Barbiturate,Urine NEGATIVE (NEGATIVE); Benzodiazepine,Urine NEGATIVE (NEGATIVE); Cocaine,Urine NEGATIVE (NEGATIVE); Methadone,Urine NEGATIVE (NEGATIVE); Opiate,Urine NEGATIVE (NEGATIVE); PCP,Urine NEGATIVE (NEGATIVE); THC,Urine NEGATIVE (NEGATIVE)
[2022-02-19] MEDS ORDERED: HOLD NARCOTIC ANALGESICS AND SEDATIVES X24 HR MC PRN (03:14)
[2022-02-19 04:45] LABS: INR 0.9 (0.8-3.0); PROTIME 9.6 SECONDS (9.4-12.5); PTT 21.4 SECONDS (25.1-36.5)
[2022-02-19] MEDS: Lactated Ringers 1,000 ML IV SCH ×2 (04:54→08:35)
[2022-02-19] MEDS ORDERED: STADOL 2 MG IV PRN (05:16)
[2022-02-19] MEDS ORDERED: Dermoplast Spray TP PRN (07:59)
[2022-02-19] MEDS ORDERED: Mylicon 80MG PO PRN (07:59)
[2022-02-19] MEDS ORDERED: Anucort-HC SUPPOSITORY PR PRN (07:59)
[2022-02-19] MEDS ORDERED: Dulcolax 10 MG SUPP PR PRN (07:59)
[2022-02-19] MEDS ORDERED: TUCKS TP PRN (07:59)
[2022-02-19] MEDS ORDERED: CORTISONE 1% CREAM TP PRN (07:59)
[2022-02-19] MEDS ORDERED: LANSINOH 40 GM TOP PRN (07:59)
[2022-02-19] MEDS ORDERED: CLARITIN 10 MG PO PRN (08:00)
[2022-02-19] MEDS ORDERED: Pepcid 20 MG VIAL IV SCH (08:00)
[2022-02-19] MEDS ORDERED: SOD CITRATE-CITRIC ACID SOLN PO SCH (08:00)
[2022-02-19] MEDS ORDERED: Reglan 10 MG/2 ML IV SCH (08:00)
[2022-02-19] MEDS ORDERED: PHENYLEPHRINE HCL ONE (08:47)
[2022-02-19] MEDS ORDERED: Zofran 4 MG/2 ML VIAL ONE ×2 (08:47→09:37)
[2022-02-19] MEDS ORDERED: Astramorph-Pf 5 MG/10 ML ONE (08:47)
[2022-02-19] MEDS ORDERED: Nubain 10 MG/ML IV PRN (09:00)
[2022-02-19] MEDS ORDERED: MORPHINE SULFATE 2 MG INJ IV PRN (09:00)
[2022-02-19] MEDS ORDERED: PERCOCET TABLET 5/325MG PO PRN (09:00)
[2022-02-19] MEDS ORDERED: Narcan 0.4 MG/ML IV PRN (09:00)
[2022-02-19] MEDS ORDERED: Marcaine 0.5%/Epinephrine 10 ML ONE (09:07)
[2022-02-19] MEDS ORDERED: Decadron 4 MG INJ ONE (09:07)
[2022-02-19] MEDS ORDERED: DEXMEDETOMIDINE 80 MCG/20ML-NS IV ONE (09:10)
[2022-02-19] MEDS ORDERED: Pitocin 10 UNITS/ML ONE (09:10)
[2022-02-19] MEDS ORDERED: Ephedrine Sulfate 50 MG/ML ONE (09:42)
[2022-02-19] MEDS ORDERED: ROBINUL ONE (09:45)
[2022-02-19] MEDS ORDERED: CEFAZOLIN 2 GM-D5W BAG** 2 GM/50 ML ML IV SCH (10:00)
[2022-02-19] MEDS ORDERED: TRANEXAMIC ACID 1000 MG/10 ML ONE (10:01)
[2022-02-19] MEDS ORDERED: Sodium Chloride 0.9% 100 ML ONE (10:02)
[2022-02-19] MEDS ORDERED: TORAdol 30 mg Injection ONE (10:18)
[2022-02-19] MEDS: Dextrose 5%-Lr IV Solution 1000 ML 1,000 ML IV SCH ×2 (14:31→22:59)
[2022-02-19 15:01] LABS: ABO TYPING O; Antibody Screen NEGATIVE (NEGATIVE); RH TYPING POSITIVE
[2022-02-19] MEDS: CEFAZOLIN 2 GM-D5W BAG** 2 GM/50 ML ML IV SCH (18:00)
[2022-02-19 21:29] LABS: Appearance CLEAR (CLEAR); Bilirubin NEGATIVE (NEGATIVE); Dipstick done @ ? MAIN LAB; Glucose NEGATIVE (NEGATIVE); Ketones NEGATIVE (NEGATIVE); Nitrite NEGATIVE (NEGATIVE); Protein,Urine Dip NEGATIVE (Negative); RBC TRACE-LYSED Ery/ul (0-5); Specific Gravity 1.015 (1.005-1.025); Urobilinogen 0.2 mg/dL (0-1)
[2022-02-19 21:44] LABS: Bacteria RARE /HPF (NEGATIVE); Epithelial Cells RARE /HPF (FEW); Mucus SLIGHT /HPF (NEGATIVE)
[2022-02-19] MEDS: Docusate Sodium 100 MG PO SCH (22:59)
[2022-02-20] MEDS: CEFAZOLIN 2 GM-D5W BAG** 2 GM/50 ML ML IV SCH (02:35)
[2022-02-20] MEDS: CYTOTEC PO SCH ×2 (05:27→05:45)
[2022-02-20] MEDS: Docusate Sodium 100 MG PO SCH ×3 (05:28→15:36)
[2022-02-20] MEDS: FERREX 150 PO SCH ×2 (05:29→15:37)
[2022-02-20] MEDS: Lactated Ringers 1,000 ML IV SCH (05:29)
[2022-02-20] MEDS: Dextrose 5%-Lr IV Solution 1000 ML 1,000 ML IV SCH (05:29)
[2022-02-20 05:56] LABS: Absolute Neutrophil Ct (ANC) 17.17 x10^3/uL (1.4-6.9); Basophil (Absolute #) 0.03 x10^3/uL (0-0.4); Eosinophil % 0.1 % (0.00-5.0); Eosinophil (Absolute #) 0.02 x10^3/uL (0-0.5); Hematocrit 29.8 % (35-47); Hemoglobin 10.1 g/dL (12.0-16.0); Lymphocytes % 8.1 % (24.0-44.0); Mean Corpuscular Hemoglobin 30.1 pg (26-32); Mean Corpuscular Hgb Concent. 33.9 g/dL (32-36); Mean Platelet Volume 12.5 fL (7.5-11.0); Monocyte (Absolute #) 1.95 x10^3/uL (0.0-1.3); Monocytes % 9.3 % (0.0-12.0); Neutrophil % 81.8 % (36.0-66.0); Platelet Count 168 x10^3/uL (150-450); Red Blood Count 3.35 x10^6/uL (4.1-5.4); Red Cell Distribution Width 13.2 % (11.5-14.0)
[2022-02-20] MEDS: MOTRIN 400 MG PO PRN ×2 (06:10→19:23)
[2022-02-20] MEDS ORDERED: Restoril 15 MG PO PRN (07:59)
[2022-02-20] MEDS ORDERED: Ambien 10 MG PO PRN (07:59)
[2022-02-20 09:42] LABS: Slide Review 1 YES
--- NOTE | 2022-02-20 11:17 | OP ---
SURGERY DATE/TIME: 02/19/2022 0921 PREOPERATIVE DIAGNOSIS: Intrauterine at 40 weeks and 1 day gestation with arrest of descent and dilatation. POSTOPERATIVE DIAGNOSIS: Intrauterine at 40 weeks and 1 day gestation with arrest of descent and dilatation. PROCEDURE: Primary section, low flap transverse uterine incision, Pfannenstiel skin incision. SURGEON: Wellington Reddy D.O. COOPERER: Anabell Black, surgical technicians. ANESTHESIA: Spinal. ESTIMATED BLOOD LOSS: 800 cc. COMPLICATIONS: None. INDICATIONS: The risks, benefits, indications and alternatives of the procedure were reviewed with the patient prior to procedure. The patient understood the risk of infection, bleeding, bowel injury, bladder injury, ureteral injury, uterine perforation, pelvic infection and thromboembolic disorder associated with the surgery and desires to have this surgery as a possible means to alleviate her current medical condition. DESCRIPTION OF PROCEDURE AND FINDINGS: At this point the patient is taken to the operating room where her spinal anesthesia was found to be adequate. She was then prepared and draped in normal sterile fashion in the dorsal supine position with leftward tilt. A Pfannenstiel skin incision is made with a scalpel and carried through to the underlying layer of the fascia with a Bovie. The fascia was then incised in the midline and the incision extended laterally with Ulloa scissors. The superior aspect of the fascial incision was then grasped Racheal clamps elevated and the underlying rectus muscles dissected off bluntly. Attention is then turned to the inferior aspect of this incision which in similar fashion was grasped, tented up with Racheal clamps and the rectus muscles dissected off bluntly. The rectus muscles were then at the midline and the peritoneum identified, tented up and entered sharply with Metzenbaum scissors. The peritoneal incision was then extended superiorly and inferiorly with good visualization of the bladder. The bladder blade was then inserted vesicouterine peritoneum identified, grasped with pickups and entered sharply with Metzenbaum scissors. This incision was then extended laterally and a bladder flap created digitally. The bladder blade was then re-inserted in the lower uterine segment incised in transverse fashion with a scalpel. The uterine incision was then extended laterally with bandage scissors. The bladder blade was then removed and the infant's head was delivered atraumatically. The nose and mouth were suctioned with bulb suction and the cord clamped and cut. The infant was then handed off to the awaiting nurses. The placenta was then removed manually. The uterus exteriorized and cleared of all clots and debris. The uterine incision was repaired with 1-0 chromic in a running locked fashion. A second layer of the same suture was used to obtain excellent hemostasis. The uterus is then returned to the abdomen. The gutters were cleared of clots and the peritoneal muscles were closed with interrupted suture using 2-0 chromic suture. The fascia was re-approximated with 0 Vicryl in a running fashion. The subcutaneous layer was closed with 3-0 Vicryl suture and the skin was closed with absorbable esther called INSORB. The patient tolerated the procedure well. Sponge, lap, needle and instrument counts were correct x2. The patient was then taken to the recovery room in stable condition. The patient delivered a live baby boy at 0951 hours. The baby's weight of the baby was 7 pounds 5 ounces and 's were 9 at 1 minute and 9 at 5 minutes.
[2022-02-20] MEDS: TYLENOL EXTRA STRENGTH 500 MG PO PRN (23:03)
[2022-02-21] MEDS: MOTRIN 400 MG PO PRN (02:04)
[2022-02-21 05:53] LABS: Basophil (Absolute #) 0.05 x10^3/uL (0-0.4); Eosinophil % 0.7 % (0.00-5.0); Eosinophil (Absolute #) 0.09 x10^3/uL (0-0.5); Hematocrit 28.1 % (35-47); Hemoglobin 9.3 g/dL (12.0-16.0); Lymphocyte (Absolute #) 2.94 x10^3/uL (1.0-4.6); Lymphocytes % 22.3 % (24.0-44.0); Mean Cell Volume 90.4 fL (78-100); Mean Corpuscular Hemoglobin 29.9 pg (26-32); Mean Corpuscular Hgb Concent. 33.1 g/dL (32-36); Mean Platelet Volume 12.2 fL (7.5-11.0); Monocytes % 8.4 % (0.0-12.0); Neutrophil % 67.5 % (36.0-66.0); Platelet Count 151 x10^3/uL (150-450); Red Blood Count 3.11 x10^6/uL (4.1-5.4); Red Cell Distribution Width 13.8 % (11.5-14.0); White Blood Count 13.2 x10^3/uL (4.0-10.5)
[2022-02-21] MEDS: TYLENOL EXTRA STRENGTH 500 MG PO PRN (08:11)
--- NOTE | 2022-02-21 08:40 | PCM.DS ---
Discharge Summary Date of Admission: 02/19/22 01:30 Admitting Physician: NAWAF REDDY DO Consults: Consults on Case 02/19/22 03:09 Notify Physician OF ADMISSION 02/19/22 03:12 Notify Anesthesia Provider ROUTINE 02/19/22 08:00 Notify Anesthesia Provider PRN 02/19/22 14:03 Navigation ONCE Primary Care Provider: SAYRA JESUS ABBI Allergies Allergies No Known Drug Allergies Allergy (Verified 02/20/22 05:35) Hospital Summary - Hospital Course Hospital Course: delivered via primary with Dr Reddy as I was unavailable, unremarkable care. her postop course has been uncomplicated. - Vitals & Intake/Output Vital Signs: Vital Signs Temperature 97.9 F 02/21/22 02:00 Pulse Rate 70 02/21/22 02:00 Respiratory Rate 20 02/21/22 02:00 Blood Pressure 111/62 02/21/22 02:00 O2 Sat by Pulse Oximetry 95 02/21/22 02:00 Intake & Output: Intake & Output 02/18/22 02/19/22 02/20/22 02/21/22 11:59 11:59 11:59 11:59 Intake Total 3100 4000 700 Output Total 600 1750 Balance 2500 2250 700 Weight 86.183 kg - Lab Result Diagrams: 02/21/22 05:45 Lab Results-Last 24 Hrs: Lab Results-Last 24 Hours 02/20/22 02/21/22 Range/Units 05:54 05:45 WBC 13.2 H (4.0-10.5) x10^3/uL RBC 3.11 L (4.1-5.4) x10^6/uL Hgb 9.3 L (12.0-16.0) g/dL Hct 28.1 L (35-47) % MCV 90.4 (78-100) fL MCH 29.9 (26-32) pg MCHC 33.1 (32-36) g/dL RDW 13.8 (11.5-14.0) % Plt Count 151 (150-450) x10^3/uL MPV 12.2 H (7.5-11.0) fL Gran % 67.5 H (36.0-66.0) % Immature Gran % (Auto) 0.7 H (0.00-0.4) % Nucleat RBC Rel Count 0.0 (0.00-0.1) % Eos # (Auto) 0.09 (0-0.5) x10^3/uL Immature Gran # (Auto) 0.09 H (0.00-0.03) x10^3u/L Absolute Lymphs (auto) 2.94 (1.0-4.6) x10^3/uL Absolute Monos (auto) 1.10 (0.0-1.3) x10^3/uL Absolute Nucleated RBC 0.00 (0.00-0.01) x10^3u/L Lymphocytes % 22.3 L (24.0-44.0) % Monocytes % 8.4 (0.0-12.0) % Eosinophils % 0.7 (0.00-5.0) % Basophils % 0.4 (0.0-0.4) % Absolute Granulocytes 8.90 H (1.4-6.9) x10^3/uL Basophils # 0.05 (0-0.4) x10^3/uL Slides for Path Review YES Micro Results-Entire Visit: Microbiology 02/19/22 09:46 Urine Culture - Final Catherized NO GROWTH - Procedures and Test Procedures and Tests throughout Hospitalization: Therapy Orders & Screens 02/19/22 10:02 Standby ROUTINE Comment: Diagnosis: IUP Discharge Exam General Appearance: no apparent distress Neurologic Exam: alert, oriented x 3 Respiratory Exam: normal breath sounds, lungs clear, No respiratory distress Cardiovascular Exam: regular rate/rhythm, normal heart sounds Gastrointestinal/Abdomen Exam: soft, other (dressing clean, dry, intact) Extremity Exam: normal inspection, normal range of motion Skin Exam: normal color, warm, dry Final Diagnosis/Problem List - Final Discharge Diagnosis/Problem (1) delivery delivered Current Visit: Yes Status: Acute Code(s): O82 - ENCOUNTER FOR DELIVERY WITHOUT INDICATION (2) (infant) Current Visit: Yes Status: Acute Code(s): Z78.9 - OTHER SPECIFIED HEALTH STATUS - Discharge Disposition: Home, Self-Care Condition: Stable Prescriptions: No Action No Reportable Medications [No Reported Medications] Follow up with: SAYRA JESUS MD [Primary Care Provider] - 1 Week
[2022-02-21 09:29] VITALS: O2SAT 96
[2022-02-21] MEDS: FERREX 150 PO SCH (09:46)
[2022-02-21] MEDS: Docusate Sodium 100 MG PO SCH (09:46)
[2022-02-21] MEDS ORDERED: Adacel Vial IM ONE (10:00)
[2022-02-21] MEDS ORDERED: M-M-R II Vaccine With Diluent SQ ONE (11:00)
[2022-02-21 12:23] VITALS: BP 126/90; PULSE 66
== END 2022-02-21 12:00 | disposition home or self-care (01) | DRG 788 ==
LOC: OB 01:30 → OBSVTOIN 02-19 01:30
PROVIDERS: ADMIT Obstetrics & Gynecology; ATTEND Obstetrics & Gynecology
PROC: 10D00Z1 Extraction of Products of Conception, Low, Open Approach (ICD-10-PCS; principal; 2022-02-19)
DX: O62.1 Secondary uterine inertia (principal); Z3A.40 40 weeks gestation of pregnancy; Z37.0 Single live birth; Z20.828 Contact with and (suspected) exposure to other viral communicable diseases
CPT/HCPCS: 36415; 59514; 64488; 76937; 76942; 80307; 81001; 81002; 84112; 85025; 85610; 85730; 86850; 86900; 86901; 87086; 90471; 90472; 90707; 90715; 94799; 99213; G0378; J0595; J0690; J1100; J1885; J2274; J2370; J2405; J2590; L0625; A9270-GY